=== PATIENT | male | born 1955 | race Caucasian/White ===

== ENCOUNTER 2018-01-31 10:18 | Outpatient (CLI) | payer OTHER, SELFPAY ==
--- NOTE | 2018-01-31 10:03 | DI.RAD_ITS ---
SYMPTOMS/DIAGNOSIS: GROIN PAIN RIGHT HIP: Severe DJD is noted with joint space narrowing, articular sclerosis and subchondral cyst formation and periarticular hypertrophic spurring. SUMMARY: Severe DJD right hip.
== END 2018-01-31 10:38 ==
PROVIDERS: PCP Family Medicine; Visit Provider Physician Assistant Surgical
DX: R10.31 Right lower quadrant pain (principal); M25.551 Pain in right hip; M16.11 Unilateral primary osteoarthritis, right hip
CPT/HCPCS: 73502

== ENCOUNTER 2018-08-27 08:54 | Outpatient (CLI) | payer MEDICARE, BC, SELFPAY ==
[2018-08-27 11:56] LABS: Abs Immature Grans 0.04 k/cumm (0.0-0.09); Absolute Basophil Count 0.04 k/cumm (0.0-0.2); Absolute Eosinophil Count 0.07 k/cumm (0.0-0.7); Absolute Lymphocyte Count 1.61 k/cumm (1.2-3.4); Absolute Monocyte Count 0.62 k/cumm (0.11-0.7); Absolute Neutrophil Count 5.86 k/cumm (1.2-6.7); Basophils % 0.5; Eosinophils % 0.8; HCT 49.9 % (40.0-50.0); HGB 16.3 g/dL (13.5-17.5); Immature Grans % 0.5; Lymphocytes % 19.5; Mean Corp. HGB Concentration 32.7 g/dL (32.0-36.0); Mean Corpuscular Hemoglobin 28.2 pg (27.0-33.0); Mean Corpuscular Volume 86.5 fL (80-95); Mean Platelet Volume 11.9 fL (8.0-11.0); Monocytes % 7.5; Neutrophils % 71.2; Platelet Count 208 x1000/uL (130-400); RBC 5.77 m/cumm (4.50-6.00); RBC Distribution Width 14.7 % (11.8-14.1); White Blood Cell Count 8.24 k/cumm (4.4-10.8)
--- NOTE | 2018-08-27 13:22 | W.PREOPHP ---
Date of service: 08/27/18 Time of Service: 08:23 Assessment and Plan (1) Degenerative joint disease of right hip: Current visit: No Status: Chronic Life disrupting end-stage osteoarthritis of right hip. Surgical procedure is outlined to the patient using a model to help with his understanding of the process. The possible complications and measures use to ameliorate those complications are reviewed with the patient primarily concerned about his vocal cord granulomas and how this may impact intubation. 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 He noted a limp and used a cane for trial. Which did not seem to help his discomfort. He noted the pain laterally as well as in his groin with x-rays show advanced OA with loss of femoral acetabular joint space on frog-lateral with cystic degeneration of his femoral head with sclerotic changes and abundant osteophytes. The pain precluded him walking on a regular basis like he used to do. Total hip arthroplasty was recommended by Dr. Dove as the only way to resolve his advanced OA and the patient is anxious to proceed. Pertinent Surgical Information Healthy 63-year-old male with benign cardiac history with a history of GERD that has caused vocall cord granulomas with excisions x2 at [facility] with history of prior DVT x3 not found to be related to any hematologic disorder following a hematology workup [place] [facility] [place]. off Coumadin since 2010. Review of Systems Constitutional Denies fever(s) and Denies headache(s) ENT Denies headache(s), Denies nasal congestion, Denies nasal discharge and Denies sore throat Cardiovascular Denies chest pain, Denies chest pain with activity, Denies palpitations, Denies dyspnea on exertion and Denies paroxysmal nocturnal dyspnea Respiratory Denies cough, Denies excessive phlegm production, Denies pain on inspiration, Denies dyspnea on exertion and Denies wheezing Gastrointestinal Denies abdominal pain, Denies melena, Denies hematochezia, Denies nausea and Denies vomiting Genitourinary Denies dysuria and Denies urinary frequency Comments: Denies burning sensation with urination Musculoskeletal Reports as per HPI Comments: right hip exam shows flexion to be less than 90 degrees with him going to an immediate external rotation posture. He has no internal rotation. Abduction causes pelvic rocking. He has no pretibial edema and has normal dorsalis pedis and posterior tib pulses. Neurologic Denies headache(s) Psychiatric Denies anxiety and Denies depression Endocrine Denies palpitations Comments: Denies any unplanned weight changes Allergic/Immunologic Denies wheezing PFSH Medical History DVT (deep venous thrombosis) (Chronic ~1996) Esophageal reflux (Acute 11/06/13) Contact granuloma of larynx (Acute) Surgical History History of hernia repair (Chronic ~02/2018) History of tonsillectomy (Chronic) Family History Mother Alzheimer disease Father Heart attack Heart disease Pulmonary fibrosis Maternal Grandfather Stroke Maternal Grandmother CHF (congestive heart failure) Other DVT (deep venous thrombosis) Social History Smoking/Tobacco Use Status: Never Alcohol Intake: current Alcohol Intake frequency: a few times a month Alcohol type: wine Drug use: Never Adopted: No Foster care: No Household members: none Housing: house Number of Children: 0 Communication Needs: Corrective Lenses Education Level: college Do you need help understanding health information?: Never current occupation: Retired Banker What type of physical activity do you participate in: none Sylvia/Buddhist: Sikhism Seatbelt use: always Drive intox or ride w/intox line driver: No Working smoke detector in home: Yes Fire extinguisher in home: Yes Carbon monox detector in home: Yes Victim of physical abuse: No Victim of emotional abuse: No Victim of sexual abuse: No Meds Home Medications Medication Instructions Recorded Confirmed Type ibuprofen [Motrin IB] 200 mg PO TID 08/27/18 08/27/18 History omeprazole magnesium [Prilosec OTC] 20 mg PO BID 08/27/18 08/27/18 History Allergies Allergy/AdvReac Type Severity Reaction Status Date / Time amoxicillin Allergy rash, h/a, Verified 08/27/18 09:47 vomitting doxycycline Allergy rash, h/a, Verified 08/27/18 09:47 vomitting Exam Const General: cooperative HENMT Throat: posterior oropharynx normal Eyes General: appearance normal, both eyes and all related structures Conjunctivae: conjunctivae normal Sclera: sclerae normal Neck Neck: no JVD Carotids: normal carotid upstroke and no bruits Resp Effort & Inspection: normal respiratory effort and able to speak in complete sentences Auscultation: clear to auscultation bilaterally, no rales, no rhonchi and no wheezes Cardio Rate: regular rate Heart Sounds: S1 normal, S2 normal and no murmurs Pulses: normal peripheral pulses Other: No pulsatile mass noted with palpation over the abdominal aorta GI Palpation: soft and no hepatosplenomegaly Auscultation: normal bowel sounds General: No CVA tenderness Extrem General: no pedal edema Other: Normal sensation to light touch No web space cracks or splits noted normal distal pulses. hip flexion limited with patient going into external rotation. no internal rotatio.abduction causes pelvis rocking Results Labs : 08/27/18 11:45 Laboratory Results - last 24 hr 08/27/18 11:45 WBC 8.24 RBC 5.77 Hgb 16.3 Hct 49.9 MCV 86.5 MCH 28.2 MCHC 32.7 RDW 14.7 H Plt Count 208 MPV 11.9 H Immature Gran % 0.5 Neutrophils % 71.2 Lymphocytes % 19.5 Monocytes % 7.5 Eosinophils % 0.8 Basophils % 0.5 Absolute Neutrophils 5.86 Absolute Lymphocytes 1.61 Absolute Monocytes 0.62 Absolute Eosinophils 0.07 Absolute Basophils 0.04
--- NOTE | 2018-08-27 13:29 | HPE_ITS ---
Date of service: 08/27/18 Time of Service: 08:23 Assessment and Plan (1) Degenerative joint disease of right hip: Current visit: No Status: Chronic Life disrupting end-stage osteoarthritis of right hip. Surgical procedure is outlined to the patient using a model to help with his understanding of the process. The possible complications and measures use to ameliorate those complications are reviewed with the patient primarily concerned about his vocal cord granulomas and how this may impact intubation. 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 He noted a limp and used a cane for trial. Which did not seem to help his discomfort. He noted the pain laterally as well as in his groin with x-rays show advanced OA with loss of femoral acetabular joint space on frog-lateral with cystic degeneration of his femoral head with sclerotic changes and abundant osteophytes. The pain precluded him walking on a regular basis like he used to do. Total hip arthroplasty was recommended by Dr. Dove as the only way to resolve his advanced OA and the patient is anxious to proceed. Pertinent Surgical Information Healthy 63-year-old male with benign cardiac history with a history of GERD that has caused vocall cord granulomas with excisions x2 at [facility] with history of prior DVT x3 not found to be related to any hematologic disorder following a hematology workup at [facility] [place]. off Coumadin since 2010. Review of Systems Constitutional Denies fever(s) and Denies headache(s) ENT Denies headache(s), Denies nasal congestion, Denies nasal discharge and Denies sore throat Cardiovascular Denies chest pain, Denies chest pain with activity, Denies palpitations, Denies dyspnea on exertion and Denies paroxysmal nocturnal dyspnea Respiratory Denies cough, Denies excessive phlegm production, Denies pain on inspiration, Denies dyspnea on exertion and Denies wheezing Gastrointestinal Denies abdominal pain, Denies melena, Denies hematochezia, Denies nausea and Denies vomiting Genitourinary Denies dysuria and Denies urinary frequency Comments: Denies burning sensation with urination Musculoskeletal Reports as per HPI Comments: right hip exam shows flexion to be less than 90 degrees with him going to an immediate external rotation posture. He has no internal rotation. Abduction causes pelvic rocking. He has no pretibial edema and has normal dors otoniel pedis and posterior tib pulses. Neurologic Denies headache(s) Psychiatric Denies anxiety and Denies depression Endocrine Denies palpitations Comments: Denies any unplanned weight changes Allergic/Immunologic Denies wheezing PFSH Medical History DVT (deep venous thrombosis) (Chronic ~1996) Esophageal reflux (Acute 11/06/13) Contact granuloma of larynx (Acute) Surgical History History of hernia repair (Chronic ~02/2018) History of tonsillectomy (Chronic) Family History Mother Alzheimer disease Father Heart attack Heart disease Pulmonary fibrosis Maternal Grandfather Stroke Maternal Grandmother CHF (congestive heart failure) Other DVT (deep venous thrombosis) Social History Smoking/Tobacco Use Status: Never Alcohol Intake: current Alcohol Intake frequency: a few times a month Alcohol type: wine Drug use: Never Adopted: No Foster care: No Household members: none Housing: house Number of Children: 0 Communication Needs: Corrective Lenses Education Level: college Do you need help understanding health information?: Never current occupation: Retired Banker What type of physical activity do you participate in: none Sylvia/Scientologist: Protestant Seatbelt use: always Drive intox or ride w/intox cdl b driver: No Working smoke detector in home: Yes Fire extinguisher in home: Yes Carbon monox detector in home: Yes Victim of physical abuse: No Victim of emotional abuse: No Victim of sexual abuse: No Meds Home Medications Medication Instructions Recorded Confirmed Type ibuprofen [Motrin IB] 200 mg PO TID 08/27/18 08/27/18 History omeprazole magnesium [Prilosec OTC] 20 mg PO BID 08/27/18 08/27/18 History Allergies Allergy/AdvReac Type Severity Reaction Status Date / Time amoxicillin Allergy rash, h/a, Verified 08/27/18 09:47 vomitting doxycycline Allergy rash, h/a, Verified 08/27/18 09:47 vomitting Exam Const General: cooperative HENMT Throat: posterior oropharynx normal Eyes General: appearance normal, both eyes and all related structures Conjunctivae: conjunctivae normal Sclera: sclerae normal Neck Neck: no JVD Carotids: normal carotid upstroke and no bruits Resp Effort & Inspection: normal respiratory effort and able to speak in complete sentences Auscultation: clear to auscultation bilaterally, no rales, no rhonchi and no wheezes Cardio Rate: regular rate Heart Sounds: S1 normal, S2 normal and no murmurs Pulses: normal peripheral pulses Other: No pulsatile mass noted with palpation over the abdominal aorta GI Palpation: soft and no hepatosplenomegaly Auscultation: normal bowel sounds General: No CVA tenderness Extrem General: no pedal edema Other: Normal sensation to light touch No web space cracks or splits noted normal distal pulses. hip flexion limited with patient going into external rotation. no internal rotatio.abduction causes pelvis rocking Results Labs : 08/27/18 11:45 Laboratory Results - last 24 hr 08/27/18 11:45 WBC 8.24 RBC 5.77 Hgb 16.3 Hct 49.9 MCV 86.5 MCH 28.2 MCHC 32.7 RDW 14.7 H Plt Count 208 MPV 11.9 H Immature Gran % 0.5 Neutrophils % 71.2 Lymphocytes % 19.5 Monocytes % 7.5 Eosinophils % 0.8 Basophils % 0.5 Absolute Neutrophils 5.86 Absolute Lymphocytes 1.61 Absolute Monocytes 0.62 Absolute Eosinophils 0.07 Absolute Basophils 0.04
== END 2018-08-27 09:14 ==
PROVIDERS: PCP Student in an Organized Health Care Education/Training Program; Visit Provider Orthopaedic Surgery
DX: M25.551 Pain in right hip (principal); M16.11 Unilateral primary osteoarthritis, right hip; Z01.812 Encounter for preprocedural laboratory examination; Z01.818 Encounter for other preprocedural examination
CPT/HCPCS: 36415; 86850; 86900; 86901; 85025

== ENCOUNTER 2018-09-02 05:56 | Inpatient (IN) | payer MEDICARE, BC, SELFPAY ==
[2018-09-02] VITALS (15 sets, daily range): BP systolic 114–143; BP diastolic 66–92; PULSE 61–86; RESP 12–20; TEMP 35.9–37.6; O2SAT 92–99
[2018-09-02] MEDS: Lactated Ringers 1,000 ML 80 ML IV ×2 (06:43→09:30)
--- NOTE | 2018-09-02 06:48 | DI.RAD_ITS ---
SYMPTOM/DIAGNOSIS: DJD RIGHT HIP RIGHT HIP IN O.R.: Single portable view of the pelvis was obtained in the operating room, during the placement of a right total hip replacement. The orthopedic hardware appears in good position. Please refer to the procedure report for complete details.
[2018-09-02] MEDS: ceFAZolin 2 GM/50 ML BAG IVPB (08:00)
--- NOTE | 2018-09-02 10:37 | DI.RAD_ITS ---
SYMPTOM/DIAGNOSIS: CHECK TOTAL HIP COMPONENTS IN rr PELVIS: The patient is status post right total hip replacement. The orthopaedic hardware appears in good position. The bones are intact. Skin derrek are present. Post surgical changes are seen in the hip soft tissues. IMPRESSION: Right THR
[2018-09-02] MEDS: FAMOTIDINE 20 MG/50 ML BAG 200 MG IVPB (10:50)
[2018-09-02] MEDS: POTASSIUM CHLORIDE/0.9% NACL 1,000 ML 150 MEQ IV ×2 (11:40→18:17)
[2018-09-02] MEDS: Ketorolac 30 MG/ML VIAL IVP ×3 (12:13→23:58)
[2018-09-02] MEDS: Normal Saline Flush 10 ML SYR IV ×2 (12:14→18:06)
--- NOTE | 2018-09-02 13:17 | NUR.NOTE ---
Nursing Note: Pt to MS floor at 1130 from PACU following hip surgery. A&Ox3, VSS. Family at bedside. Abductor pillow in place. Pacheco catheter; clear, yellow urine. Pt oriented to MS floor, call malik, etc. Call malik within reach. RN will continue to monitor.
[2018-09-02] MEDS: Docusate Sodium 100 MG CAP PO ×2 (14:40→19:48)
[2018-09-02] MEDS: HYDROcodone 5/Acetaminophen 325 TAB PO ×2 (14:46→15:22)
[2018-09-02] MEDS: ceFAZolin 2,000 MG in Normal Saline 100 ML 200 MG IVPB ×2 (15:33→20:52)
--- NOTE | 2018-09-02 17:19 | PT.INIE ---
Date of service: 09/02/18 Time of Service: 15:13 PT Notes Inpatient Physical Therapy Evaluation Date: 09/02/2018 Referring Doctor: Frank Dove MD PT Orders: PT CONSULT: Mobilize postop right total hip. Total hip precautions right. WBAT to right leg. Get OOB ambulating in room this afternoon. Precautions: Fall. Standard. WBAT on right LE. Total hip precautions on the R hip. Patient Profile/Admitting Diagnosis: Patient is a 63-year-old male with unilateral primary osteoarthritis of right hip status post total hip arthroplasty on postoperative day 0. PMHX: Medical History DVT (deep venous thrombosis) (Chronic ~1996) Esophageal reflux (Acute 11/06/13) Contact granuloma of larynx (Acute) Surgical History History of hernia repair (Chronic ~02/2018) History of tonsillectomy (Chronic) Social History/Home Situation: Patient lives alone in a one-story house with 3 steps to enter, rails on the left going up. Patient took care of ailing parents for over 10 years and signed house to be handicap accessible. House has a low threshold and shower with grab bars. There is a raised toilet seat with grab bars on adjacent bustos. Patient has been independent with all aspects of ADLs with use of a straight cane for MRADLs. He still drives. 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 Current Functional Limitations: Need for assistance with all transfer and ambulation task performance using F WW Equipment Owned/DME: FWW, SBQC, SPC, raised toilet seat Subjective: Patient is agreeable to a PT consult and treatment today. He reports slight lightheadedness upon sitting up in supine which subsided with rest. He reports discomfort at rest on the right hip and and with movement. He looks forward to going home soon as it is safe to do so and may consider home health PT services for a short time to maximize safety at home. H okay to be e also agreed to progressing to outpatient physical therapy services in order to facilitate return to prior level of function. Objective: General Observation: Patient seen resting in bed head of bed elevated 30 degrees. Wound dressing covering GUSTAVO surgical site. TEDS to bilateral legs. PT pumps to bilateral legs. IV right UE. Abduction pillow in place. Pacheco catheter in place. Mental Status: Alert and oriented x4 Pain: 4/10 on right hip and knee with rest and with movement ROM: Right Upper Extremity: Shoulder Flexion WFL. Shoulder abduction WFL. Elbow flexion WFL. Wrist flexion WFL. Functional opening and closing of hand WFL. Left Upper Extremity: Shoulder Flexion WFL. Shoulder abduction WFL. Elbow flexion WFL. Wrist flexion WFL. Functional opening and closing of hand WFL. Right Lower Extremity: Hip flexion to within movement precautions WFL. Hip abduction to within movement precautions WFL. Knee flexion WFL. Ankle dorsiflexion WFL. Ankle plantarflexion WFL. Left Lower Extremity: Hip flexion WFL. Hip abduction WFL. Knee flexion WFL. Ankle dorsiflexion WFL. Ankle plantarflexion WFL. Strength: Right Upper Extremity: Shoulder flexors 5/5. Shoulder abductors 5/5. Elbow flexors 5/5. Elbow extensors 5/5. Adult Education Professional strong. Left Upper Extremity: Shoulder flexors 5/5. Shoulder abductors 5/5. Elbow flexors 5/5. Elbow extensors 5/5. Adult Education Professional strong. Right Lower Extremity: Hip flexors 3- /5. Hip abductors 3- /5. Knee flexors 4- /5. Knee extensors 3+ /5. Ankle dorsiflexors 5/5. Ankle plantarflexors 5/5. Left Lower Extremity:Hip flexors 5/5. Hip abductors 5/5. Knee flexors 5/5. Knee extensors 5/5. Ankle dorsiflexors 5/5. Ankle plantarflexors 5/5. Sensation: Patient reports ability to feel bilateral lower extremities at time of evaluation, intact as to pain and pressure. Bed Mobility/Transfers: Supine to sit HOB elevated to 30 degrees requiring minimal assist to to right LE Sit to supine HOB elevated to 30 degrees requiring minimal assist to to right LE Sit to stand bed elevated to above 20 degrees from floor requiring CGA using both hands for support Stand to sit bed elevated to above 20 degrees from floor requiring CGA using both hands for support Bed to chair CGA using FWW Chair to bed CGA using FWW Gait: Patient was able to tolerate in-room ambulation of 10 steps forward and then 10 steps back using step-to gait pattern with CGA of this PT requiring minimal to moderate verbal cueing for correct sequence, gait pattern, walker management and overall safety. Decreased step height and length on the right side noted with decreased gait velocity due to post reparative status and pain complaint. Balance: Static Sitting: Good Dynamic Sitting: Good Static Standing: Fair Dynamic Standing: Fair Special Tests: Mobility Limitations Standardized Measure [facility] AM-PAC 6 clicks Basic Mobility Inpatient Short Form: Raw Score: 17 CMS Score: 51% deficit Informed Consent/Education: Patient instructed in purpose of PT consult and plan of care. Patient was advised about potential need for home health PT in order to facilitate education and training with safe techniques to reduce fall risk at home and to bridge the gap between home and outpatient PT services with goal of returning to PLOF with least restrictive assistive ambulatory device. Patient was instructed with hourly ankle pumping in order to augment anti-DVT pump function to minimize DVT ocurrence as patient has been known to have DVT x3 in the past. Assessment: Patient is a 63-year-old male with primary unilateral osteoarthritis of right hip status post right total hip arthroplasty on postoperative day 0. Patient presents with clinical signs and symptoms consistent with current/admitting diagnoses and post reparative status that have resulted to mobility limitations, gait instability, generalized weakness, and impairment of motor control as demonstrated by the following impairment level findings: 1. Decreased strength to R LE major muscle groups 2. Impaired sitting/standing balance 3. Impaired activity tolerance 4. Limitation of joint range of motion in right hip and knee joint due to movement precautions Impairments are contributing to the following functional limitations: 1. Dependent bed mobility skills 2. Increased dependence with transfers 3. Inability to safely ambulate without assistive device and physical assistance 4. Increase completion time for mobility ADL performance 5. Increased fall risk 6. Inability to negotiate steps alone safely Patient is assessed as a [id number] moderate complexity based on the following: History: Cognitively intact male who is independent with all aspects of ADLs prior to surgery but with increased risk for DVT and with current mobility limitations as indicated above Examination: Underlying impairments and functional limitations as noted above Presentation:Evolving Decision Makin moderate complexity Goals: Goals X1 week 1. Supine-Sit independent 2. Sit-Supine independent 3. Sit-Stand independent 4. Stand-Sit independent 5. Bed-Chair independent 6. Chair-Bed independent 7. Independent gait on level surface with use of least restrictive device for at least 200 feet without report of pain nor dyspnea 8. Independent stair negotiation while holding onto bilateral rails for at least 5 steps without report of pain nor dyspnea 9. Independent with home exercise program 10. Good static and dynamic standing balance/tolerance Plan of Care/Treatment Plan 1-2x/day, 7 days/week x 1 week. Plan of care has been reviewed with the SPRAY PAINTING MACHINE OPERATOR providing the service under Physical Therapy direction. Initiate Physical Therapy intervention for strengthening, bed mobility, transfers, gait, stairs, balance training, use of assistive device. DISCHARGE RECOMMENDATIONS: Patient will benefit from home health PT services in order to progress mobility level using least restrictive assistive ambulatory device/using no device, assess home safety, identify additional equipment needs, and establish a functional maintenance program that will increase ability of patient to remain at home. TREATMENT CODE/TIME: 17503 x30 minutes, 9753 0 x 25 minutes beginning at 15:13 p.m. Thank you very much for this referral. Christa Figueroa PT, DPT, CLT [facility]
[2018-09-02] MEDS: oxyCODONE-CR 10 MG TABCR PO (18:05)
[2018-09-03] VITALS (8 sets, daily range): BP systolic 109–145; BP diastolic 67–87; PULSE 69–84; RESP 16–18; TEMP 36.7–38; O2SAT 93–97
[2018-09-03] MEDS: POTASSIUM CHLORIDE/0.9% NACL 1,000 ML 150 MEQ IV ×2 (00:25→06:33)
[2018-09-03] MEDS: ceFAZolin 2,000 MG in Normal Saline 100 ML 200 MG IVPB ×2 (02:00→09:10)
[2018-09-03] MEDS: Ketorolac 30 MG/ML VIAL IVP ×4 (06:02→23:57)
[2018-09-03] MEDS: oxyCODONE-CR 10 MG TABCR PO ×2 (06:02→17:59)
[2018-09-03 07:06] LABS: HCT 39.4 % (40.0-50.0); HGB 12.7 g/dL (13.5-17.5); Mean Corp. HGB Concentration 32.2 g/dL (32.0-36.0); Mean Corpuscular Hemoglobin 28.5 pg (27.0-33.0); Mean Corpuscular Volume 88.3 fL (80-95); Platelet Count 150 x1000/uL (130-400); RBC 4.46 m/cumm (4.50-6.00); RBC Distribution Width 14.7 % (11.8-14.1); White Blood Cell Count 7.28 k/cumm (4.4-10.8)
[2018-09-03] MEDS: Pantoprazole 40 MG TABCR PO (08:43)
[2018-09-03] MEDS: Docusate Sodium 100 MG CAP PO ×3 (08:43→20:29)
[2018-09-03] MEDS: Multivitamin w/Minerals TAB 1 TAB PO (08:43)
--- NOTE | 2018-09-03 08:48 | PDOC.CMIN ---
- If Service Date Differs Date of service: 09/03/18 Time of Service: 08:48 Care Management Initial Assess REASON FOR HOSPITALIZATION:: degenerative joint disease of right hip PAST MEDICAL HISTORY/PAST SURGICAL HISTORY:: Medical History. DVT (deep venous thrombosis) (Chronic ~1996). Esophageal reflux (Acute 11/06/13). Contact granuloma of larynx (Acute). Surgical History. History of hernia repair (Chronic ~02/2018). History of tonsillectomy (Chronic) PREVIOUS FUNCTIONAL STATUS/SOCIAL/FAMILY SUPPORTS:: Ron lives alone in a single family home in [facility]. He is a retired banker. Ron cared for his Dad in his home until he in February. He had his home renovated to be ADA compliant and handicapped accessible for his Dad. He is independent with ADLs , driving etc. He has good neighbors and a brother and kybxis-[id number]-mwa who are very supportive. CURRENT FUNCTIONAL STATUS:: Ron was sitting up in the chair when CM came to visit. He was smiling broadly and readily engaged in conversation. He stated that he is feeling well and that his pain is only a 1 on a scale of 1-10. He said he is pleasantly surprised at how well he is doing. Before coming to the hospital he purchased a large supply of frozen meals and set things up so that he could reach what he needed easily. He also has a wheelchair ramp from when his Mom was ill, if needed. He anticipates being in the hospital at least until tomorrow. ADVANCE DIRECTIVES:: None on file at [facility] CODE STATUS:: Full Code INSURANCE COVERAGE / FINANCIAL ISSUES:: Medicare. BS CURRENT HOME/COMMUNITY SERVICES/EQUIPMENT:: Currently no home services. Uses a cane. PRIMARY CARE PHYSICIAN:: Shwetha Jarrell POTENTIAL DISCHARGE NEEDS:: He may need home health services of SN and/or PT. He will need to follow up with his surgeon and discharge plan of care. PATIENT/FAMILY EDUCATION NEEDS:: Discharge plan, limitations, follow up plan of care, Ask Me Three. ANTICIPATED BARRIERS TO DISCHARGE:: None identified TRANSPORTATION:: Via private automobile with family when ready. PLAN:: Ron is recovering from total hip arthroplasty surgery performed yesterday. His pain is well controlled and he is working with PT. Anticipate he will go home with no services. CM will continue to provide support to patient and discharge planning considerations.
--- NOTE | 2018-09-03 09:02 | INITIAL_ITS ---
- If Service Date Differs Date of service: 09/03/18 Time of Service: 08:48 Care Management Initial Assess REASON FOR HOSPITALIZATION:: degenerative joint disease of right hip PAST MEDICAL HISTORY/PAST SURGICAL HISTORY:: Medical History. DVT (deep venous thrombosis) (Chronic ~1996). Esophageal reflux (Acute 11/06/13). Contact granuloma of larynx (Acute). Surgical History. History of hernia repair (Chronic ~02/2018). History of tonsillectomy (Chronic) PREVIOUS FUNCTIONAL STATUS/SOCIAL/FAMILY SUPPORTS:: Ron lives alone in a single family home in [facility]. He is a retired banker. Ron cared for his Dad in his home until he in February. He had his home renovated to be ADA compliant and handicapped accessible for his Dad. He is independent with ADLs , driving etc. He has good neighbors and a brother and [id number]-vq-ajs who are very supportive. CURRENT FUNCTIONAL STATUS:: Ron was sitting up in the chair when CM came to visit. He was smiling broadly and readily engaged in conversation. He stated that he is feeling well and that his pain is only a 1 on a scale of 1-10. He said he is pleasantly surprised at how well he is doing. Before coming to the hospital he purchased a large supply of frozen meals and set things up so that he could reach what he needed easily. He also has a wheelchair ramp from when his Mom was ill, if needed. He anticipates being in the hospital at least until tomorrow. ADVANCE DIRECTIVES:: None on file at [facility] CODE STATUS:: Full Code INSURANCE COVERAGE / FINANCIAL ISSUES:: Medicare. BS CURRENT HOME/COMMUNITY SERVICES/EQUIPMENT:: Currently no home services. Uses a cane. PRIMARY CARE PHYSICIAN:: Shwetha Jarrell POTENTIAL DISCHARGE NEEDS:: He may need home health services of SN and/or PT. He will need to follow up with his surgeon and discharge plan of care. PATIENT/FAMILY EDUCATION NEEDS:: Discharge plan, limitations, follow up plan of care, Ask Me Three. ANTICIPATED BARRIERS TO DISCHARGE:: None identified TRANSPORTATION:: Via private automobile with family when ready. PLAN:: Ron is recovering from total hip arthroplasty surgery performed yesterday. His pain is well controlled and he is working with PT. Anticipate he will go home with no services. CM will continue to provide support to patient and discharge planning considerations.
[2018-09-03] MEDS: Enoxaparin 40 MG/0.4 ML SYR SC (10:03)
--- NOTE | 2018-09-03 10:04 | ROE_ITS ---
DATE OF PROCEDURE: September 02, 2018 PREOPERATIVE DIAGNOSIS: Osteoarthritis right hip. POSTOPERATIVE DIAGNOSIS: Same. PROCEDURE: Right total hip arthroplasty. COMPONENTS USED: 1. DePuy Storey stem, press-fit, high-offset, size 4. 2. Press-fit acetabular shelf, 52 x 36 mm. 3. Acetabular liner, 52 x 36 mm. 4. 36 mm, +5 ceramic femoral head. ANESTHESIA: Spinal, Herbie Funes CRNA SURGEON: Frank Dove M.D. 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 He had episodes of severe pain along with this. He had difficulty putting on his shoes and socks. He has used a cane for a trial because of increasing discomfort. The cane didn't seem to hel p with his pain. He has had to cut back on his walking because of the pain, to the point where he is not walking at all. He was seen and evaluated. He has marked restriction of motion of his right hi p. His hip range of motion is painful. X-rays show advanced osteoarthritis of the right hip with carter bchondral cysts in the femoral head, complete loss of joint space and large osteophytes at the femora l head and neck junction. There appeared to be possible loose bodies as well. Total hip arthroplast y was recommended to alleviate his pain and hopefully restore some of his previous ambulatory abiliti es. The risks and complications of the procedure were explained to the patient in detail preoperativ erin. PROCEDURE: The patient was taken to the Operating Room on 09/02/18. His spinal anesthetic was admini stered. He was then turned to the right lateral position on the operating table. The position on th e table was secured by a pneumatic beanbag. The right hip was then prepped and draped free in the [facility] sterile fashion. A standard posterolateral incision was made, centered over the greater trochanter. The incision was carried down through the skin and subcu to the iliotibial band and gluteus fascia. The subcutaneous veins were cauterized. The iliotibial band and gluteus fascia were longitudinally incised in line wi th the skin incision. Charnley self-retraining retractor was then inserted. The piriformis tendon was identified and a tack suture was placed on the tendon before it was released from its insertion o n the femoral neck. A posterior capsular incision was then made. The incision was positioned as far anterior as possible so that a posterior capsular flap could be developed for closure. The capsule was released from the femoral neck. A bone hook was placed onto the neck of the femur and the femora l head was dislocated. The femoral neck was then resected at appropriate angle and level, determined using the femoral neck resection guide and using an oscillating saw. Traction was placed on the fem ur medially and an anterior capsulectomy was performed. The posterior capsular flap was then further developed. Acetabular retractors were inserted and an excellent view of the acetabulum was obtained . There were multiple bony loose bodies in the joint that were retrieved with a pituitary rongeur. The acetabulum was then serially reamed using hemispheric reamers up to a size 52. At that point it was felt that there was a good fit with the cup. The actual liner, 52 x 36, was then impacted into p lace using the impactor and mallet. The liner was further stabilized using a single screw through th e acetabular shell into the pelvis. The final liner was inserted and then attention was turned to th e femoral side. The femoral canal was serially reamed with straight reamers up to a size 5. However when broaching, it was felt that a size 4 provided good fit and fill and that a size 5 might be too tight. Leaving t he size [address] and using a trial femoral neck and head, the trial components were reduced in the acetabulum and intraoperative AP x-ray was obtained. The AP x-ray showed that the size 4 stem provided good fit and fill. It determined the acetabular component was in excellent position and li mb lengths were equalized using a +5 head. The trial components were then dislocated from the acetab ulum and the trial femoral stem was removed. The trial liner to the acetabular component was removed . The manhole cover in the center of the liner was then inserted and tightened. The actual liner, p olyethylene 52 x 36 was then placed into the shell and locked into place with the impactor and mallet . A size 4, LUZ porous-coated, press-fit stem was then inserted in proper position alignment and was inserted with the impactor and mallet until fully seated in the femur. The wound was irrigated with Betadine and saline solution and this was allowed to stay in the wound for a minute before suctioning . A +5, 36 ceramic femoral head was placed on the neck of the stem and impacted into place with the impactor and mallet. The femoral component was reduced into the acetabulum. Stability was checked at this time. There was minimal shuck with longitudinal traction. The hip was stable with no dislocation with flexion to 90 degrees and internal rotation to 85 to 90 degrees. Th ere was no subluxation nor dislocation with external rotation of the right lower extremity in extensi on. The right thigh was then abducted in a Meneses stand and closure was begun. The posterior capsular flap that had been developed, along with the piriformis tendon, was secured to the posterior edge of the greater trochanter using interrupted [id number] sutures of #2 FiberWire placed through drill hol es in the posterior greater trochanter. Two grams of tranexamic acid in 150 cc's of saline solution were then instilled into the wound and allowed to sit for a minute before suctioning. The wound chris ins were infiltrated with 0.5% Marcaine with an epinephrine solution. Any obvious bleeders were caut erized and a dry wound was obtained at the conclusion of the procedure. The iliotibial band and glut eus fascia were approximated with interrupted [id number] sutures of #1 Vicryl suture material. The subcu was approximated with interrupted #2-0 Vicryl sutures. The skin edges were approximated wi skin derrek. Sterile dressings were applied followed by a light compressive dressing to the righ t hip. The patient was turned supine and an abduction pillow was placed between his legs. Estimated blood loss 300 to 400 cc's. The patient tolerated the procedure well and was discharged to recovery in good condition.
--- NOTE | 2018-09-03 10:41 | PT.INTREAT ---
Date of service: 09/03/18 Time of Service: 10:41 PT Notes 09/03/18 SUBJECTIVE: Ron stating he feels stiff today compared to yesterday. No significant pain. He wonders if he can weight bear through the right leg. OBJECTIVE: Seated in recliner, agreeable to PT. Pt education: Review 3/3 hip precautions and weight bearing status. Pt understands. TRANSFERS Sit to stand: CGA Stand to sit: CGA GAIT Device: FWW Weight bearing: WBAT R Assist: CGA Distance: 75' Deviation: Step to initially progressing to step through THEREX: Seated LE strengthening with post op precautions. See flow sheet. ASSESSMENT: Pt progressing with gait distance. He is now placing weight through the R LE without discomfort with step through gait pattern. We will progress with bed mobility and transfers this afternoon as well as stair assessment. PLAN: As above. Continue to progress toward's established goals. Treatment time: 25' [id number], [id number] Sandy Bucio, PACKER INSPECTOR
--- NOTE | 2018-09-03 13:19 | PT.INTREAT ---
Date of service: 09/03/18 Time of Service: 13:20 PT Notes 09/03/18 SUBJECTIVE: Pt stating he feels stiff again after sitting up for most of the day. No significant pain. He notes that he may want an OT consult to work on getting dressed. He has brought in his own sock jeff and grabber that he had a home. OBJECTIVE: Agreeable to PT treatment this afternoon. TRANSFERS Sit to stand: SBA Stand to sit: SBA Sit to supine: Min A for R LE GAIT Device: FWW Weight bearing: AT R Assist: SBA Distance: 100'x2 Deviation: Step to pattern STAIRS: 6-4 steps, 4-6 steps, 1 rail, 1 SPC, step to pattern, SBA. THEREX: Light muscle setting and hip ROM as noted on flow sheet. See flow sheet for specifics. ASSESSMENT: Pt negotiated stairs well with one rail and one SPC. He continues to require assist to get into bed and we willl continue to work on this tomorrow. Progressing well with gait and his pain seems to be well controlled. PLAN: Continue with bed mobility and transfer training tomorrow as per POC. Treatment time: 30 minutes [id number], [id number] Sandy Bucio PTA
--- NOTE | 2018-09-03 14:03 | CHAPLAIN ---
Ron was sitting up in a chair when I visited. He was very pleasant and easily engaged in a conversation. He told me about caregiving for his dad, who in February. Prior to that he took care of his mom for several years after she was diagnosed with dementia. His parents lived with him for 10 years. We talked about the stress of caregiving and how caregivers often neglect their own health issues. Ron said he has some outside help in caring for his mom as he was still working at the time. 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 Ron is thinking of doing some traveling once he recovers, and continuing to investigate family genealogy in [place]. Ron has an older brother and sister in law who will likely visit later today.
--- NOTE | 2018-09-03 15:36 | W.PM.PROGNOT ---
Date of Service Date of service: 09/03/18 Time of Service: 15:36 Assessment and Plan (1) Status post total hip replacement, right: Current visit: Yes Status: Acute Assessment: Stable postop day #1 right total hip replacement. Plan: Continue to mobilize per protocol for total hip replacement. Watch him to make sure he voids now that his Pacheco is out. DC IV fluids. Check hemoglobin tomorrow. Will DC home when he is independent with transfers and ambulation and taking only p.o. pain meds. Subjective Interval history since last seen: Ron is feeling quite well today. His pain is well controlled. The numbness in his right leg from the spinal has worn off. He is very happy to have the catheter out. Exam Narrative Exam Narrative: Motor and sensory examination of the right foot is completely normal today. He has not voided yet since his Pacheco has been DC'd, but he feels no urgency at this time. Hemoglobin this morning is 12.7 g. He is afebrile and his vital signs are stable. He has walked around the second floor with PT today. He just needs a little bit of help lifting his right leg to transfer. Objective Objective Clinical Data: Abnormal lab results 09/03/18 Range/Units 06:25 RBC 4.46 L (4.50-6.00) m/cumm Hgb 12.7 L (13.5-17.5) g/dL Hct 39.4 L (40.0-50.0) % RDW 14.7 H (11.8-14.1) % MPV 12.0 H (8.0-11.0) fL Vital Signs Temperature 36.7 C 09/03/18 11:00 Temperature Source Tympanic 09/03/18 11:00 Pulse 84 09/03/18 11:00 Pulse Rhythm Regular 09/03/18 09:00 Respiratory Rate 16 09/03/18 11:00 Respiratory Effort Non-Labored 09/03/18 09:00 Respiratory Depth Normal 09/03/18 09:00 Respiratory Pattern Normal 09/03/18 09:00 Blood Pressure 145/87 H 09/03/18 11:00 Pulse Oximetry 96 09/03/18 11:00 Respiratory End-tidal CO2 31 09/02/18 10:54 Oxygen Delivery Method Room Air 09/03/18 11:00 Oxygen Flow Rate 0 09/03/18 11:00 Pain Level 3 09/03/18 11:46 Intake & Output 09/02/18 09/03/18 09/03/18 23:59 11:59 23:59 Intake Total 3060.5 / 4742.5 2722.5 / 3412.5 690 / 3412.5 Output Total 250 / 1375 600 / 1715 1115 / 1715 Balance 2810.5 / 3367.5 2122.5 / 1697.5 -425 / 1697.5 Intake: IV 1640.5 / 3322.5 2242.5 / 2242.5 Oral 1420 / 1420 480 / 1170 690 / 1170 Output: Urine 250 / 975 600 / 1715 1115 / 1715 Other: Urine Color Light Mira Dark Mira Yellow Urine Appearance Clear Clear Clear Voiding Methods Toilet Laboratory Results WBC 7.28 k/cumm (4.4-10.8) 09/03/18 06:25 RBC 4.46 m/cumm (4.50-6.00) L 09/03/18 06:25 Hgb 12.7 g/dL (13.5-17.5) L 09/03/18 06:25 Hct 39.4 % (40.0-50.0) L 09/03/18 06:25 MCV 88.3 fL (80-95) 09/03/18 06:25 MCH 28.5 pg (27.0-33.0) 09/03/18 06:25 MCHC 32.2 g/dL (32.0-36.0) 09/03/18 06:25 RDW 14.7 % (11.8-14.1) H 09/03/18 06:25 Plt Count 150 x1000/uL (130-400) 09/03/18 06:25 MPV 12.0 fL (8.0-11.0) H 09/03/18 06:25
[2018-09-03] MEDS: Senna TAB 1 TAB PO (17:14)
[2018-09-03] MEDS: Normal Saline Flush 10 ML SYR IVP (23:58)
[2018-09-04 04:03] VITALS: BP 120/74; PULSE 73; RESP 17; TEMP 36.8; O2SAT 97
[2018-09-04] MEDS: Ketorolac 30 MG/ML VIAL IVP (05:35)
[2018-09-04] MEDS: oxyCODONE-CR 10 MG TABCR PO ×2 (05:36→16:12)
[2018-09-04] MEDS: Pantoprazole 40 MG TABCR PO (07:30)
[2018-09-04 07:40] VITALS: BP 119/78; PULSE 75; RESP 18; TEMP 36.8; O2SAT 96; O2SAT 97
[2018-09-04 08:12] LABS: HCT 38.9 % (40.0-50.0); HGB 12.5 g/dL (13.5-17.5); Mean Corp. HGB Concentration 32.1 g/dL (32.0-36.0); Mean Corpuscular Hemoglobin 28.4 pg (27.0-33.0); Mean Corpuscular Volume 88.4 fL (80-95); Mean Platelet Volume 12.4 fL (8.0-11.0); Platelet Count 152 x1000/uL (130-400); RBC Distribution Width 14.7 % (11.8-14.1); White Blood Cell Count 8.08 k/cumm (4.4-10.8)
[2018-09-04] MEDS: Senna TAB 1 TAB PO ×2 (09:09→14:03)
[2018-09-04] MEDS: Multivitamin w/Minerals TAB 1 TAB PO (09:09)
[2018-09-04] MEDS: Normal Saline Flush 10 ML SYR IVP (09:09)
--- NOTE | 2018-09-04 09:09 | PT.INTREAT ---
Date of service: 09/04/18 Time of Service: 09:10 PT Notes 09/04/18 SUBJECTIVE: Pt stating he is doing well. He slept well last night and having minimal discomfort. He notes he was able to get in and out of bed during the night without help. OBJECTIVE: Self care training [id number]: Pt instructed in dressing utilizing grabber and sock jeff. He is able to complete this independently with cues for appropriate completion. All activities performed following post op hip precautions. TRANSFERS Sit to stand: I Stand to sit: I Supine to sit: I Sit to supine: I GAIT Device: FWW Weight bearing: AT R Assist: S Distance: 100'x2 Deviation: Step through pattern, upright posturing. THEREX: Pt performs quad sets, glut sets, hip abduction, ankle pumps x 10 reps each in supine position. See flow sheet. Stairs: 3-4, 2-6, 1 rail, 1 SPC, step to pattern, SBA. ASSESSMENT: Significant gains noted in his functional mobility and transfers. He has a good understanding of his hip precautions and was able to independently don undergarment, pants, socks and shirt today with minor cues and use of equipment. He was given handouts for safe transfers and dressing safety following hip precautions. Pt demonstrates good safety awareness for home. PLAN: Continue current POC as pt is here in the hospital. Treatment time: 30' [id number], [id number] Sandy Bucio PTA
--- NOTE | 2018-09-04 09:13 | PTTR_ITS ---
Date of service: 09/04/18 Time of Service: 09:10 PT Notes 09/04/18 SUBJECTIVE: Pt stating he is doing well. He slept well last night and having minimal discomfort. He notes he was able to get in and out of bed during the night without help. OBJECTIVE: Self care training [id number]: Pt instructed in dressing utilizing grabber and sock jeff. He is able to complete this independently with cues for appropriate completion. All activities performed following post op hip precautions. TRANSFERS Sit to stand: I Stand to sit: I Supine to sit: I Sit to supine: I GAIT Device: FWW Weight bearing: AT R Assist: S Distance: 100'x2 Deviation: Step through pattern, upright posturing. THEREX: Pt performs quad sets, glut sets, hip abduction, ankle pumps x 10 reps each in supine position. See flow sheet. Stairs: 3-4, 2-6, 1 rail, 1 SPC, step to pattern, SBA. ASSESSMENT: Significant gains noted in his functional mobility and transfers. He has a good understanding of his hip precautions and was able to independently don undergarment, pants, socks and shirt today with minor cues and use of equipment. He was given handouts for safe transfers and dressing safety following hip precautions. Pt demonstrates good safety awareness for home. PLAN: Continue current POC as pt is here in the hospital. Treatment time: 30' [id number], [id number] Sandy Bucio PTA
[2018-09-04] MEDS: Enoxaparin 40 MG/0.4 ML SYR SC (10:41)
[2018-09-04 11:18] VITALS: BP 126/82; PULSE 77; RESP 18; TEMP 36.9; O2SAT 96
[2018-09-04] MEDS: Docusate Sodium 100 MG CAP PO (14:03)
--- NOTE | 2018-09-04 14:14 | PTTR_ITS ---
Date of service: 09/04/18 Time of Service: 14:11 PT Notes 09/04/18 SUBJECTIVE: Pt stating he is getting stiff from sitting in the chair. He notes tightness through the lateral hip most likely from swelling. He has not been successful having a bowel movement at this time and he is feeling bloated. OBJECTIVE: Seated in recliner. Agreeable to PT. TRANSFERS Sit to stand: I Stand to sit: I GAIT Device: FWW Weight bearing: AT R Assist: S Distance: 100'x2 ASSESSMENT: Pt tolerates PM PT session well without LOB or significant fatigue noted. He is independent with bed mobility and transfers and therefore not assessed again this PM. He has a good understanding of his precautions and his HEP. PLAN: Continue per POC while pt is here in the hospital. Treatment time: 15 minutes [id number] Sandy Bucio, INSPECTING ENGINEER
--- NOTE | 2018-09-04 15:29 | W.PM.DS.N ---
Date of service: 09/04/18 Time of Service: 15:29 DS: Diagnosis Discharge Diagnosis (1) Status post total hip replacement, right: Status: Acute Discharge Plan Disposition Patient Disposition: HOME Condition: Good Discharge Details Reason For Visit: POST-OP R TOTAL HIP Admit Date/Time: 09/02/18 05:56 Admit Provider: Frank Dove Attending Provider: Frank Dove [facility] Course: Patient was taken to the OR on where he underwent a R total hip without complication. He was mobilized post-op per protocol for THR. He progressed rapidly, achieving full independance by 09/04/18. He remained afebrile throughout his post-operative course. His hemoglobin stabilized at 12.5 g at 48 hours post-op. His dressing was changed on 09/04/18. His incision was clean and dry. I felt he was ready for discharge on the afternoon of . Home Meds and New Rx's Prescriptions: New oxycodone-acetaminophen 5-325 mg tablet 1 tab PO Q6H PRN (Reason: pain) Qty: 20 RF: 0 ibuprofen 800 mg tablet 800 mg PO TID Qty: 60 RF: 0 No Action ibuprofen [Motrin IB] 200 mg Capsule 200 mg PO TID RF: 0 Prilosec OTC 20 mg Tablet,Delayed Release (Dr/Ec) 20 mg PO BID RF: 0 Discharge Instructions Additional Instructions: Elevate R leg when sitting. Walk every day as much as your discomfort allows. Use walker, crutches or cane as long as you limp. Follow total hip precautions on R for 6 weeks post-op. May shower tomorrow. Let the dressing gradually come off over time. Wear elastic stockings during daytime only for next 2 weeks to decrease swelling in legs. Take one baby aspirin (81 mg) twice/day for 30 days to prevent blood clots in legs. Follow up with in 2 weeks. Referrals: Frank Dove MD [ [facility] STAFF PHYSICIAN] - (f/u in 2 weeks.) Activity:: Activity as Tolerated Equipment/Supplies:: Walker Diet:: As Tolerated Discharge Orders Discharge Orders: Discharge Order (Routine); Ordered 09/04/18 Ordered By: Frank Dove DS: Data Vitals/I&O Vitals and I&O: Vital Signs Temperature 36.9 C 09/04/18 11:18 Temperature Source Tympanic 09/04/18 11:18 Pulse 77 09/04/18 11:18 Pulse Rhythm Regular 09/04/18 07:43 Respiratory Rate 18 09/04/18 11:18 Respiratory Effort Non-Labored 09/04/18 07:43 Respiratory Depth Normal 09/04/18 07:43 Respiratory Pattern Normal 09/04/18 07:43 Blood Pressure 126/82 09/04/18 11:18 Pulse Oximetry 96 09/04/18 11:18 Respiratory End-tidal CO2 31 09/02/18 10:54 Oxygen Delivery Method Room Air 09/04/18 11:18 Oxygen Flow Rate 0 09/04/18 11:18 Pain Level 0 09/03/18 17:59 Intake & Output 09/03/18 09/04/18 09/04/18 23:59 11:59 23:59 Intake Total 1150 / 3872.5 870 / 870 Output Total 1515 / 2115 300 / 1000 700 / 1000 Balance -365 / 1757.5 570 / -130 -700 / -130 Intake: IV 20 / 2262.5 20 / 20 Oral 1130 / 1610 850 / 850 Output: Urine 1515 / 2115 300 / 1000 700 / 1000 Other: Urine Color Straw Pale Dark Mira Yellow [place] Urine Appearance Clear Clear Clear Urine Odor Normal None Normal Voiding Methods Toilet Urinal Toilet Labs on day of discharge: Labs from last 24 hours 09/04/18 07:00 WBC 8.08 RBC 4.40 L Hgb 12.5 L Hct 38.9 L MCV 88.4 MCH 28.4 MCHC 32.1 RDW 14.7 H Plt Count 152 MPV 12.4 H PFSH Social History Smoking/Tobacco Use Status: Never Alcohol Intake: current Alcohol Intake frequency: a few times a month Alcohol type: wine Drug use: Never Adopted: No Foster care: No Household members: none Housing: house Number of Children: 0 Communication Needs: Corrective Lenses Education Level: college Do you need help understanding health information?: Never current occupation: Retired Banker What type of physical activity do you participate in: none Sylvia/Congregational: Evangelical Seatbelt use: always Drive intox or ride w/intox funeral driver: No Working smoke detector in home: Yes Fire extinguisher in home: Yes Carbon monox detector in home: Yes Victim of physical abuse: No Victim of emotional abuse: No Victim of sexual abuse: No
[2018-09-04 15:30] VITALS: BP 136/82; PULSE 85; RESP 18; TEMP 37.4; O2SAT 97
--- NOTE | 2018-09-04 15:36 | DSE_ITS ---
Date of service: 09/04/18 Time of Service: 15:29 DS: Diagnosis Discharge Diagnosis (1) Status post total hip replacement, right: Status: Acute Discharge Plan Disposition Patient Disposition: HOME Condition: Good Discharge Details Reason For Visit: POST-OP R TOTAL HIP Admit Date/Time: 09/02/18 05:56 Admit Provider: Frank Dove Attending Provider: Frank Dove [facility] Hospital Course: Patient was taken to the OR on where he underwent a R total hip without complication. He was mobilized post-op per protocol for THR. He progressed rapidly, achieving full independance by 09/04/18. He remained afebrile throughout his post-operative course. His hemoglobin stabilized at 12.5 g at 48 hours post-op. His dressing was changed on 09/04/18. His incision was clean and dry. I felt he was ready for discharge on the afternoon of . Home Meds and New Rx's Prescriptions: New oxycodone-acetaminophen 5-325 mg tablet 1 tab PO Q6H PRN (Reason: pain) Qty: 20 RF: 0 ibuprofen 800 mg tablet 800 mg PO TID Qty: 60 RF: 0 No Action ibuprofen [Motrin IB] 200 mg Capsule 200 mg PO TID RF: 0 Prilosec OTC 20 mg Tablet,Delayed Release (Dr/Ec) 20 mg PO BID RF: 0 Discharge Instructions Additional Instructions: Elevate R leg when sitting. Walk every day as much as your discomfort allows. Use walker, crutches or cane as long as you limp. Follow total hip precautions on R for 6 weeks post-op. May shower tomorrow. Let the dressing gradually come off over time. Wear elastic stockings during daytime only for next 2 weeks to decrease swelling in legs. Take one baby aspirin (81 mg) twice/day for 30 days to prevent blood clots in legs. Follow up with in 2 weeks. Referrals: Frank Dove MD [ [facility] STAFF PHYSICIAN] - (f/u in 2 weeks.) Activity:: Activity as Tolerated Equipment/Supplies:: Walker Diet:: As Tolerated Discharge Orders Discharge Orders: Discharge Order (Routine); Ordered 09/04/18 Ordered By: Frank Dove DS: Data Vitals/I&O Vitals and I&O: Vital Signs Temperature 36.9 C 09/04/18 11:18 Temperature Source Tympanic 09/04/18 11:18 Pulse 77 09/04/18 11:18 Pulse Rhythm Regular 09/04/18 07:43 Respiratory Rate 18 09/04/18 11:18 Respiratory Effort Non-Labored 09/04/18 07:43 Respiratory Depth Normal 09/04/18 07:43 Respiratory Pattern Normal 09/04/18 07:43 Blood Pressure 126/82 09/04/18 11:18 Pulse Oximetry 96 09/04/18 11:18 Respiratory End-tidal CO2 31 09/02/18 10:54 Oxygen Delivery Method Room Air 09/04/18 11:18 Oxygen Flow Rate 0 09/04/18 11:18 Pain Level 0 09/03/18 17:59 Intake & Output 09/03/18 09/04/18 09/04/18 23:59 11:59 23:59 Intake Total 1150 / 3872.5 870 / 870 Output Total 1515 / 2115 300 / 1000 700 / 1000 Balance -365 / 1757.5 570 / -130 -700 / -130 Intake: IV 20 / 2262.5 20 / 20 Oral 1130 / 1610 850 / 850 Output: Urine 1515 / 2115 300 / 1000 700 / 1000 Other: Urine Color Straw Pale Dark Mira Yellow [place] Urine Appearance Clear Clear Clear Urine Odor Normal None Normal Voiding Methods Toilet Urinal Toilet Labs on day of discharge: Labs from last 24 hours 09/04/18 07:00 WBC 8.08 RBC 4.40 L Hgb 12.5 L Hct 38.9 L MCV 88.4 MCH 28.4 MCHC 32.1 RDW 14.7 H Plt Count 152 MPV 12.4 H PFSH Social History Smoking/Tobacco Use Status: Never Alcohol Intake: current Alcohol Intake frequency: a few times a month Alcohol type: wine Drug use: Never Adopted: No Foster care: No Household members: none Housing: house Number of Children: 0 Communication Needs: Corrective Lenses Education Level: college Do you need help understanding health information?: Never current occupation: Retired Banker What type of physical activity do you participate in: none Sylvia/Latter Day: Pentecostal Seatbelt use: always Drive intox or ride w/intox rail car driver: No Working smoke detector in home: Yes Fire extinguisher in home: Yes Carbon monox detector in home: Yes Victim of physical abuse: No Victim of emotional abuse: No Victim of sexual abuse: No
--- NOTE | 2018-09-04 17:20 | PT.INDS ---
Date of service: 09/04/18 Time of Service: 17:20 PT Notes Inpatient Physical Therapy Discharge Summary Dates: 09/04/2018 Dates of Service: 09/02/2018 through 09/04/2018 This is a clinical summary of care provided on the duration of dates listed above. No charge was made in the completion of this documentation. Referring Doctor: Frank Dove MD PT Orders: PT CONSULT: Mobilize postop right total hip. Total hip precautions right. WBAT to right leg. Get OOB ambulating in room this afternoon. Precautions: Fall. Standard. WBAT on right LE. Total hip precautions on the R hip. Patient Profile/Admitting Diagnosis: Patient is a 63-year-old male with unilateral primary osteoarthritis of right hip status post total hip arthroplasty on postoperative day 0. PMHX: Medical History DVT (deep venous thrombosis) (Chronic ~1996) Esophageal reflux (Acute 11/06/13) Contact granuloma of larynx (Acute) Surgical History History of hernia repair (Chronic ~02/2018) History of tonsillectomy (Chronic) Social History/Home Situation: Patient lives alone in a one-story house with 3 steps to enter, rails on the left going up. Patient took care of ailing parents for over 10 years and signed house to be handicap accessible. House has a low threshold and shower with grab bars. There is a raised toilet seat with grab bars on adjacent bustos. Patient has been independent with all aspects of ADLs with use of a straight cane for MRADLs. He still drives. 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 Current Functional Limitations: Need for assistance with all transfer and ambulation task performance using F WW Equipment Owned/DME: FWW, SBQC, SPC, raised toilet seat Subjective: NT. See COOKER SYRUP notes in the morning of 09/04/2018 Objective: General Observation: NT. See COOKER SYRUP notes in the morning of 09/04/2018 Mental Status: NT. See COOKER SYRUP notes in the morning of 09/04/2018 Pain: NT. See COOKER SYRUP notes in the morning of 09/04/2018 ROM: Right Upper Extremity: Shoulder Flexion WFL. Shoulder abduction WFL. Elbow flexion WFL. Wrist flexion WFL. Functional opening and closing of hand WFL. Left Upper Extremity: Shoulder Flexion WFL. Shoulder abduction WFL. Elbow flexion WFL. Wrist flexion WFL. Functional opening and closing of hand WFL. Right Lower Extremity: Hip flexion to within movement precautions WFL. Hip abduction to within movement precautions WFL. Knee flexion WFL. Ankle dorsiflexion WFL. Ankle plantarflexion WFL. Left Lower Extremity: Hip flexion WFL. Hip abduction WFL. Knee flexion WFL. Ankle dorsiflexion WFL. Ankle plantarflexion WFL. Strength: Right Upper Extremity: Shoulder flexors 5/5. Shoulder abductors 5/5. Elbow flexors 5/5. Elbow extensors 5/5. Sash Installer strong. Left Upper Extremity: Shoulder flexors 5/5. Shoulder abductors 5/5. Elbow flexors 5/5. Elbow extensors 5/5. Sash Installer strong. Right Lower Extremity: Hip flexors 3- /5. Hip abductors 3- /5. Knee flexors 4- /5. Knee extensors 3+ /5. Ankle dorsiflexors 5/5. Ankle plantarflexors 5/5. Left Lower Extremity:Hip flexors 5/5. Hip abductors 5/5. Knee flexors 5/5. Knee extensors 5/5. Ankle dorsiflexors 5/5. Ankle plantarflexors 5/5. Sensation: Patient reports ability to feel bilateral lower extremities at time of evaluation, intact as to pain and pressure. Bed Mobility/Transfers: Supine to sit I Sit to supine I Sit to stand I Stand to sit I Bed to chair I Chair to bed I Gait: Per COOKER SYRUP documentation in the morning of 09/04/2018, patient was able to perform level surface ambulation using FWW with for 100 feet x 2 requiring only supervision from COOKER SYRUP. Patient was also able to negotiate three 4 inch steps and two 6 inch steps while holding onto bilateral rails requiring the same level of supervision from COOKER SYRUP. Balance: Static Sitting: Good Dynamic Sitting: Good Static Standing: Fair Dynamic Standing: Fair Assessment: Patient is a 63-year-old male with primary unilateral osteoarthritis of right hip status post right total hip arthroplasty on postoperative day 0. Patient presents with clinical signs and symptoms consistent with current/admitting diagnoses and post reparative status that have resulted to mobility limitations, gait instability, generalized weakness, and impairment of motor control as demonstrated by the following impairment level findings: 1. Decreased strength to R LE major muscle groups 2. Impaired sitting/standing balance 3. Impaired activity tolerance 4. Limitation of joint range of motion in right hip and knee joint due to movement precautions Impairments are contributing to the following functional limitations: 1. Inability to safely ambulate without assistive device and physical assistance 2. Increase completion time for mobility ADL performance 3. Increased fall risk Goals: Goals X1 week 1. Supine-Sit independent MET 2. Sit-Supine independent MET 3. Sit-Stand independent MET 4. Stand-Sit independent MET 5. Bed-Chair independent MET 6. Chair-Bed independent MET 7. Independent gait on level surface with use of least restrictive device for at least 200 feet without report of pain nor dyspnea NOT MET 8. Independent stair negotiation while holding onto bilateral rails for at least 5 steps without report of pain nor dyspnea NOT MET 9. Independent with home exercise program MET 10. Good static and dynamic standing balance/tolerance NOT MET DISCHARGE RECOMMENDATIONS: Patient will benefit from home health PT services in order to progress mobility level using least restrictive assistive ambulatory device/using no device, assess home safety, identify additional equipment needs, and establish a functional maintenance program that will increase ability of patient to remain at home. TREATMENT CODE/TIME: LA Thank you very much for this referral. Christa Figueroa PT, DPT, [facility]
--- NOTE | 2018-09-04 17:26 | INDS_ITS ---
Date of service: 09/04/18 Time of Service: 17:20 PT Notes Inpatient Physical Therapy Discharge Summary Dates: 09/04/2018 Dates of Service: 09/02/2018 through 09/04/2018 This is a clinical summary of care provided on the duration of dates listed above. No charge was made in the completion of this documentation. Referring Doctor: Frank Dove MD PT Orders: PT CONSULT: Mobilize postop right total hip. Total hip precautions right. WBAT to right leg. Get OOB ambulating in room this afternoon. Precautions: Fall. Standard. WBAT on right LE. Total hip precautions on the R hip. Patient Profile/Admitting Diagnosis: Patient is a 63-year-old male with unilateral primary osteoarthritis of right hip status post total hip arthroplasty on postoperative day 0. PMHX: Medical History DVT (deep venous thrombosis) (Chronic ~1996) Esophageal reflux (Acute 11/06/13) Contact granuloma of larynx (Acute) Surgical History History of hernia repair (Chronic ~02/2018) History of tonsillectomy (Chronic) Social History/Home Situation: Patient lives alone in a one-story house with 3 steps to enter, rails on the left going up. Patient took care of ailing parents for over 10 years and signed house to be handicap accessible. House has a low threshold and shower with grab bars. There is a raised toilet seat with grab bars on adjacent bustos. Patient has been independent with all aspects of ADLs with use of a straight cane for MRADLs. He still drives. 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 Current Functional Limitations: Need for assistance with all transfer and ambulation task performance using F WW Equipment Owned/DME: FWW, SBQC, SPC, raised toilet seat Subjective: NT. See PROTOTYPE FABRICATOR notes in the morning of 09/04/2018 Objective: General Observation: NT. See PROTOTYPE FABRICATOR notes in the morning of 09/04/2018 Mental Status: NT. See PROTOTYPE FABRICATOR notes in the morning of 09/04/2018 Pain: NT. See PROTOTYPE FABRICATOR notes in the morning of 09/04/2018 ROM: Right Upper Extremity: Shoulder Flexion WFL. Shoulder abduction WFL. Elbow flexion WFL. Wrist flexion WFL. Functional opening and closing of hand WFL. Left Upper Extremity: Shoulder Flexion WFL. Shoulder abduction WFL. Elbow flexion WFL. Wrist flexion WFL. Functional opening and closing of hand WFL. Right Lower Extremity: Hip flexion to within movement precautions WFL. Hip abduction to within movement precautions WFL. Knee flexion WFL. Ankle dorsifl exion WFL. Ankle plantarflexion WFL. Left Lower Extremity: Hip flexion WFL. Hip abduction WFL. Knee flexion WFL. Ankle dorsiflexion WFL. Ankle plantarflexion WFL. Strength: Right Upper Extremity: Shoulder flexors 5/5. Shoulder abductors 5/5. Elbow flexors 5/5. Elbow extensors 5/5. Fretted Instrument Repairer strong. Left Upper Extremity: Shoulder flexors 5/5. Shoulder abductors 5/5. Elbow flexors 5/5. Elbow extensors 5/5. Fretted Instrument Repairer strong. Right Lower Extremity: Hip flexors 3- /5. Hip abductors 3- /5. Knee flexors 4- /5. Knee extensors 3+ /5. Ankle dorsiflexors 5/5. Ankle plantarflexors 5/5. Left Lower Extremity:Hip flexors 5/5. Hip abductors 5/5. Knee flexors 5/5. Knee extensors 5/5. Ankle dorsiflexors 5/5. Ankle plantarflexors 5/5. Sensation: Patient reports ability to feel bilateral lower extremities at time o f evaluation, intact as to pain and pressure. Bed Mobility/Transfers: Supine to sit I Sit to supine I Sit to stand I Stand to sit I Bed to chair I Chair to bed I Gait: Per PROTOTYPE FABRICATOR documentation in the morning of 09/04/2018, patient was able to perform level surface ambulation using FWW with for 100 feet x 2 requiring only supervision from PROTOTYPE FABRICATOR. Patient was also able to negotiate three 4 inch steps and two 6 inch steps while holding onto bilateral rails requiring the same level of supervision from PROTOTYPE FABRICATOR. Balance: Static Sitting: Good Dynamic Sitting: Good Static Standing: Fair Dynamic Standing: Fair Assessment: Patient is a 63-year-old male with primary unilateral osteoarthritis of right hip status post right total hip arthroplasty on postoperative day 0. Patient presents with clinical signs and symptoms consistent with current/admitting diagnoses and post reparative status that have resulted to mobility limitations, gait instability, generalized weakness, and impairment of motor control as demonstrated by the following impairment level findings: 1. Decreased strength to R LE major muscle groups 2. Impaired sitting/standing balance 3. Impaired activity tolerance 4. Limitation of joint range of motion in right hip and knee joint due to movement precautions Impairments are contributing to the following functional limitations: 1. Inability to safely ambulate without assistive device and physical assistance 2. Increase completion time for mobility ADL performance 3. Increased fall risk Goals: Goals X1 week 1. Supine-Sit independent MET 2. Sit-Supine independent MET 3. Sit-Stand independent MET 4. Stand-Sit independent MET 5. Bed-Chair independent MET 6. Chair-Bed independent MET 7. Independent gait on level surface with use of least restrictive device for at least 200 feet without report of pain nor dyspnea NOT MET 8. Independent stair negotiation while holding onto bilateral rails for at least 5 steps without report of pain nor dyspnea NOT MET 9. Independent with home exercise program MET 10. Good static and dynamic standing balance/tolerance NOT MET DISCHARGE RECOMMENDATIONS: Patient will benefit from home health PT services in order to progress mobility level using least restrictive assistive ambulatory device/using no device, assess home safety, identify additional equipment needs, and establish a functional maintenance program that will increase ability of patient to remain at home. TREATMENT CODE/TIME: [place] Thank you very much for this referral. Christa Figueroa PT, DPT, [facility]
--- NOTE | 2018-09-04 17:44 | PDOC.CMDIS ---
- If Service Date Differs Date of service: 09/04/18 Time of Service: 17:44 LACE Index Scoring Tool - Questions: Length of Stay (in days): 2 Acuity (Admit via E.D.?): No E.D. Visits: 0 - Answers: Total Score: 2 Risk of Readmission: Low Risk Care Management Discharge Reason for Hospitalization: degenerative joint disease of right hip Discharge Plan: Ron will be discharged home with no additional services. He will be transported via private automobile with family. Ron will follow up with his surgeon and discharge plan of care. Patient/Family Education Needs: Discharge plan, limitations, follow up plan of care, Ask Me Three.
== END 2018-09-04 16:18 | disposition home or self-care (01) | DRG 470 ==
LOC: PDS 10:20 → MS 10:32 → PDS 10:45 → MS 09-03 10:11
PROVIDERS: Admitting Provider Orthopaedic Surgery; PCP Student in an Organized Health Care Education/Training Program; Visit Provider Orthopaedic Surgery
PROC: 0SR904A Replacement of Right Hip Joint with Ceramic on Polyethylene Synthetic Substitute, Uncemented, Open Approach (ICD-10-PCS; CPT 27130; principal; 2018-09-02 07:30)
DX: M16.11 Unilateral primary osteoarthritis, right hip (principal); M25.551 Pain in right hip; Z96.641 Presence of right artificial hip joint; K21.9 Gastro-esophageal reflux disease without esophagitis
CPT/HCPCS: 27130; 36415; 85027; 97110; 97162; 97530; 97535; J1650; NC; 72170; 73501; J0690; J1885; J2250; L1686

== ENCOUNTER 2018-09-18 10:44 | Outpatient (CLI) | payer MEDICARE, BC, SELFPAY ==
--- NOTE | 2018-09-18 10:34 | DI.RAD_ITS ---
SYMPTOMS/DIAGNOSIS: CHECK THR COMPONENTS RIGHT HIP AND PELVIS: Two views were obtained and show total hip joint replacement in position. The components appear well seated. No other significant bony abnormality seen.
== END 2018-09-18 11:04 ==
PROVIDERS: PCP Student in an Organized Health Care Education/Training Program; Referring Provider Student in an Organized Health Care Education/Training Program; Visit Provider Orthopaedic Surgery
DX: Z96.641 Presence of right artificial hip joint (principal); Z47.1 Aftercare following joint replacement surgery
CPT/HCPCS: 73502

== ENCOUNTER → 2018-10-16 10:20 | Outpatient (BNVA) | payer MEDICARE, BC, SELFPAY | PROVIDERS: PCP Student in an Organized Health Care Education/Training Program; Referring Provider Student in an Organized Health Care Education/Training Program; Visit Provider Orthopaedic Surgery | DX: Z47.1 Aftercare following joint replacement surgery (principal); Z96.641 Presence of right artificial hip joint ==

== ENCOUNTER → 2018-11-27 09:06 | Outpatient (BNVA) | payer MEDICARE, BC, SELFPAY | PROVIDERS: PCP Student in an Organized Health Care Education/Training Program; Referring Provider Student in an Organized Health Care Education/Training Program; Visit Provider Orthopaedic Surgery | DX: Z47.1 Aftercare following joint replacement surgery (principal); Z96.641 Presence of right artificial hip joint ==

== ENCOUNTER 2019-02-21 08:04 | Outpatient (CLI) | payer MEDICARE, BC, SELFPAY ==
[2019-02-21 09:33] LABS: HCT 47.1 % (40.0-50.0); HGB 15.2 g/dL (13.5-17.5); Mean Corp. HGB Concentration 32.3 g/dL (32.0-36.0); Mean Corpuscular Hemoglobin 27.7 pg (27.0-33.0); Mean Corpuscular Volume 85.8 fL (80-95); Platelet Count 236 x1000/uL (130-400); RBC 5.49 m/cumm (4.50-6.00); RBC Distribution Width 14.9 % (11.8-14.1); White Blood Cell Count 7.23 k/cumm (4.4-10.8)
[2019-02-21 12:22] LABS: Calculated LDL 113 mg/dL; Cholesterol 199 mg/dL (<200); HDL Cholesterol 60 mg/dL (40-60); Triglyceride 130 mg/dL (<150)
[2019-02-25 16:17] LABS: ALT 25 U/L (16-63); AST 18 U/L (15-37); Albumin 4.2 g/dL (3.4-5.0); Alkaline Phosphatase 92 U/L (46-116); Anion Gap 11.2 mmol/L (3-11); BUN 24 mg/dL (7-18); Bilirubin, Total 0.3 mg/dL (0.2-1.0); CO2 26.8 mmol/L (21.0-32.0); CREATININE 1.05 mg/dL (0.70-1.30); Calcium 9.3 mg/dL (8.5-10.1); Chloride 104 mmol/L (98-107); Glucose 95 mg/dL (74-106); Potassium 4.4 mmol/L (3.5-5.1); Sodium 142 mmol/L (136-145); Total Protein 7.2 g/dL (6.4-8.2)
== END 2019-02-21 08:24 ==
PROVIDERS: PCP Student in an Organized Health Care Education/Training Program; Visit Provider Student in an Organized Health Care Education/Training Program
DX: I10 Essential (primary) hypertension (principal)
CPT/HCPCS: 36415; 80053; 80061; 85027

== ENCOUNTER → 2019-03-17 11:35 | Outpatient (BNVA) | payer MEDICARE, BC, SELFPAY | PROVIDERS: PCP Student in an Organized Health Care Education/Training Program; Referring Provider Student in an Organized Health Care Education/Training Program; Visit Provider Orthopaedic Surgery | DX: Z96.641 Presence of right artificial hip joint (principal); M70.61 Trochanteric bursitis, right hip | CPT/HCPCS: 20610; 99214; J1040 ==

== ENCOUNTER → 2019-04-22 08:59 | Outpatient (BNVA) | payer MEDICARE, BC, SELFPAY | PROVIDERS: PCP Student in an Organized Health Care Education/Training Program; Referring Provider Student in an Organized Health Care Education/Training Program; Visit Provider Orthopaedic Surgery | DX: M70.71 Other bursitis of hip, right hip (principal); Z98.890 Other specified postprocedural states | CPT/HCPCS: 99213 ==

== ENCOUNTER 2019-08-26 09:50 | Outpatient (CLI) | payer MEDICARE, BC, SELFPAY ==
--- NOTE | 2019-08-26 09:00 | DI.RAD_ITS ---
EXAM: XR KNEE RT 2V AP,LAT CLINICAL HISTORY: KNEE PAIN TECHNIQUE: COMPARISON: No exams were available for comparison FINDINGS: Two views were obtained. Cartilaginous joint spaces appear fairly well maintained. There may be a s mall knee joint effusion. There are marginal osteophytes of the patella. Minimal spurring or loose body seen associated with the intercondylar eminence of the tibia. No other bony abnormality seen. IMPRESSION: Mild degenerative changes as described above.
== END 2019-08-26 10:10 ==
PROVIDERS: PCP Student in an Organized Health Care Education/Training Program; Referring Provider Student in an Organized Health Care Education/Training Program; Visit Provider Orthopaedic Surgery
DX: M25.461 Effusion, right knee (principal); M25.561 Pain in right knee; M17.11 Unilateral primary osteoarthritis, right knee
CPT/HCPCS: 20610; 99214; 73560; J1040

== ENCOUNTER 2020-03-29 03:52 | Outpatient (CLI) | payer MEDICARE, BC, SELFPAY ==
[2020-03-29 14:53] LABS: ALT 33 U/L (16-63); AST 19 U/L (15-37); Alkaline Phosphatase 77 U/L (46-116); BUN 22 mg/dL (7-18); Bilirubin, Total 0.4 mg/dL (0.2-1.0); CREATININE 1.16 mg/dL (0.70-1.30); Calcium 9.2 mg/dL (8.5-10.1); Calculated LDL 109 mg/dL (<100); Chloride 103 mmol/L (98-107); Cholesterol 219 mg/dL (<200); Glucose 94 mg/dL (74-106); HDL Cholesterol 59 mg/dL (40-60); Magnesium 1.9 mg/dL (1.8-2.4); Potassium 4.5 mmol/L (3.5-5.1); Sodium 138 mmol/L (136-145); Total Protein 7.3 g/dL (6.4-8.2); Triglyceride 256 mg/dL (<150)
[2020-03-29 15:00] LABS: Amylase 78 U/L (25-115); Lipase 204 U/L (73-393)
== END 2020-03-29 04:12 ==
PROVIDERS: PCP Student in an Organized Health Care Education/Training Program; Visit Provider Student in an Organized Health Care Education/Training Program
DX: I25.10 Atherosclerotic heart disease of native coronary artery without angina pectoris (principal); R03.0 Elevated blood-pressure reading, without diagnosis of hypertension; K21.9 Gastro-esophageal reflux disease without esophagitis; R60.0 Localized edema; R10.9 Unspecified abdominal pain; R14.0 Abdominal distension (gaseous); Z83.79 Family history of other diseases of the digestive system
CPT/HCPCS: 36415; 80053; 80061; 83690; 82150; 83735

== ENCOUNTER 2020-10-04 14:50 | Outpatient (CLI) | payer MEDICARE, BC, SELFPAY | END 2020-10-04 14:51 | LOC: CARDO 11-09 10:45 | PROVIDERS: PCP Student in an Organized Health Care Education/Training Program; Referring Provider Student in an Organized Health Care Education/Training Program; Visit Provider Internal Medicine Cardiovascular Disease | DX: R00.2 Palpitations (principal); I47.2 Ventricular tachycardia; I49.3 Ventricular premature depolarization; I47.1 Supraventricular tachycardia; I49.1 Atrial premature depolarization | CPT/HCPCS: 93248 ==

== ENCOUNTER 2020-12-03 15:49 | Outpatient (CLI) | payer MEDICARE, BC, SELFPAY | END 2020-12-03 15:50 | disposition home or self-care (01) | LOC: RT 15:58 | PROVIDERS: PCP Student in an Organized Health Care Education/Training Program; Visit Provider Student in an Organized Health Care Education/Training Program | DX: R00.2 Palpitations (principal); R53.83 Other fatigue | CPT/HCPCS: 94762 ==

== ENCOUNTER 2021-05-17 01:58 | Outpatient (CLI) | payer MEDICARE, BC, SELFPAY ==
--- NOTE | 2021-05-17 06:30 | DI.US_ITS ---
APPROVED REPORT EXAM: Comprehensive 2D, Doppler, and color-flow Echocardiogram Patient Location: Out-Patient [employer] Specialist: Tamiko Randall RDCS (AE) Indications: Baseline EF, SVT, Palpitations Other Information Study Quality: Adequate Conclusion Normal left ventricular wall thickness and chamber size. Estimated ejection fraction is 55 to 60%. Wall motion is normal Normal right ventricular size and systolic function Both atria are normal in size Aortic valve is trileaflet and mildly sclerotic with trace regurgitation Normal mitral valve with trace regurgitation Normal tricuspid valve with trace regurgitation. Estimated right ventricular systolic pressure is 22 mmHg Dilated ascending aorta measuring 4.19 cm Wall motion Left Ventricle The left ventricle is normal size. The left ventricular systolic function is normal. The left ventric ular ejection fraction is within the normal range. There is normal left ventricular wall thickness. T here is normal LV segmental wall motion. There is no ventricular septal defect visualized. LVEF is 55 -60%. Right Ventricle The right ventricle is normal size. The right ventricular systolic function is normal. The RVSP is 22 .0 mmHg. Atria The left atrium size is normal. The right atrium size is normal. The interatrial septum is intact wit h no evidence for an atrial septal defect. Aortic Valve The Aortic valve is mildly sclerotic. Aortic valve is trileaflet. There is no aortic valvular stenosi s. Trace aortic regurgitation. Mitral Valve The mitral valve is normal in structure. No evidence of mitral valve stenosis. Trace mitral regurgita tion. Tricuspid Valve The tricuspid valve is normal in structure. There is no tricuspid valve stenosis. Trace tricuspid reg urgitation. Pulmonic Valve The pulmonary valve is normal in structure. There is no pulmonic valvular stenosis. Trace pulmonic re gurgitation. Great Vessels The aortic root is normal in size. The ascending aorta is severely dilated. Aortic arch is normal in caliber. IVC is normal in size and collapses >50% with inspiration. Pericardium There is no pericardial effusion. 2D Dimensions IVSD d PLAX 0.99 cm M: 0.6-1.2 LV Vol A2C d MOD 89.6 mL LVPW d PLAX 0.98 cm M: 0.6 - 1.2 LV Vol A4C d MOD 110.1 mL LVID d PLAX 4.51 cm M: 4.2 - 5.8 LA vol/ BSA A2C s A-L 20.7 mL/m2 LVDs 3.15 cm M: 2.5 - 4.0 LA vol/ BSA A4C s A-L 14.5 mL/m2 Ao Root d 3.06 cm M: 3.1 - 3.7 LA Vol/ BSA Biplane s A-L 17.4 mL/m2 RA Area A4C 13.03 cm2 LA Area A4C s MOD 12.54 cm2 RA Vol/ BSA A4C s A-L 16.7 mL/m2 LA Area A2C s MOD 14.92 cm2 Ao Asc Diam d 4.19 cm M: 2.6 - 3.4 LV EF A4C MOD 55.1 % LV EF Teichholz 56.4 % LV EF A2C MOD 55.6 % LVEF (Guallpa's) 53.65 % M: 52 - 72 LV EF Biplane MOD 53.7 % LV Volume 73.20 mL M: 62 - 150 SV 53.10 mL LV Volume Index 35.19 mL/m2 M: 34 - 74 SV Index 25.45 mL/m2 LV Vol Biplane MOD 99.0 mL FS 29.35 % M-Mode TAPSE 1.70 cm (M/F) >1.7 LV Diastology MV E' medial 0.077 (>0.07 m/s) E/A Ratio 0.7 LV E/e MED 9.25 (<14) MV E Vmax 0.71 (0.4-1.3 m/s) MV E' lateral 0.105 (>0.1 m/s) MV A Vmax 0.95 (0.4-1.3 m/s) LV E/e LAT 6.75 (<14) MV E/A Ratio 0.72 MV E/E' medial 9.27 MV E/E' lateral 6.79 Aortic Valve LVOT Area 3.25 cm2 AoV Area Vmax 2.53 cm2 LVOT Vmax 1.04 m/s AoV Area/ BSA (Vmax) 1.21 cm2/m2 LVOT Mean Geraldo. 0.69 m/s JOSE RAUL Mean Geraldo. 2.46 cm2 LVOT Peak Grad 4.4 mmHg JOSE RAUL Mean Geraldo. Index 1.18 cm2/m2 LVOT Mean Grad 2.2 mmHg AR DT 2413 msec LVOT VTI 0.211 m AR PHT 700 msec LVOT Diam s 2.00 cm AoV Vmax 1.34 m/s Velocity Ratio 0.77 AoV Mean Geraldo. 0.91 m/s AoV Peak Grad 7.1 mmHg LVOT SV 68.35 mL AoV Mean Grad 3.8 mmHg AoV VTI 0.232 m AoV Area VTI 2.95 cm2 AoV Area/ BSA (VTI) 1.41 cm/m2 Mitral Valve MV DT 211 (160-240 msec) MV PHT 61 msec MV Area PHT 3.59 cm2 MV VTI 0.273 m MV Area VTI 2.51 (4.0-6.0 cm2) Pulmonary Valve PV Vmax 1.23 (0.5-1.5 m/s) RVOT Peak Gr. 2.03 mmHg PV Peak Grad 6.0 mmHg RVOT Mean Gr. 1.05 mmHg PV Mean Grad 2.8 mmHg RVOT VTI 0.152 m PV VTI 0.206 m RVOT Vmax 0.71 m/s Tricuspid Valve TR Peak Grad 19.0 mmHg TR Vmax 2.18 m/s RA Pressure 3.00 mmHg RVSP (TR) 22.0 mmHg
== END 2021-05-17 02:18 ==
PROVIDERS: PCP Student in an Organized Health Care Education/Training Program; Visit Provider Student in an Organized Health Care Education/Training Program
DX: I47.1 Supraventricular tachycardia (principal); R00.2 Palpitations
CPT/HCPCS: 93306

== ENCOUNTER 2022-03-13 03:26 | Outpatient (CLI) | payer MEDICARE, BC, SELFPAY ==
[2022-03-13 15:32] LABS: Ferritin 24 ng/mL (26-388); TSH (W/Ref FT4) 1.42 uIU/mL (0.36-3.74); Vitamin B12 717 pg/mL (193-986)
[2022-03-13 16:24] LABS: Vitamin D 25 Total 28.1 ng/mL (30-100)
== END 2022-03-13 03:27 | disposition home or self-care (01) ==
LOC: LBO 03:26
PROVIDERS: PCP Student in an Organized Health Care Education/Training Program; Visit Provider Internal Medicine Sleep Medicine
DX: E61.1 Iron deficiency (principal); R53.83 Other fatigue; E55.9 Vitamin D deficiency, unspecified; G47.61 Periodic limb movement disorder; G47.33 Obstructive sleep apnea (adult) (pediatric)
CPT/HCPCS: 36415; 82306; 82607; 82728; 84443

== ENCOUNTER 2022-09-14 11:10 | Outpatient (CLI) | payer MEDICARE, BC, SELFPAY ==
--- NOTE | 2022-09-14 09:02 | DI.RAD_ITS ---
Exam(s) XR HIP RT COMPLETE AP PELVIS EXAM: XR HIP RT COMPLETE AP PELVIS INDICATION: right hip pain. COMPARISON: CR XR hip RT complete AP pelvis from 09/18/2018 TECHNIQUE: 2D digital imaging was performed. Two views. FINDINGS: There has been no change in the right total hip prosthesis. There are no suspicious surrounding bony lucencies. The left hip joint space is maintained. There is mild spurring from the acetabula and m argin of the left femoral head. SI joints and pubic symphysis are unremarkable. IMPRESSION: Stable appearance of right total hip prosthesis. Mild degenerative changes of the left hip. DATA REPOSITORY: RADIATION DOSE DELIVERED:
== END 2022-09-14 11:11 | disposition home or self-care (01) ==
LOC: DIORS 11:10
PROVIDERS: PCP Student in an Organized Health Care Education/Training Program; Referring Provider Student in an Organized Health Care Education/Training Program; Visit Provider Physician Assistant
DX: Z96.641 Presence of right artificial hip joint (principal); S76.011A Strain of muscle, fascia and tendon of right hip, initial encounter; W19.XXXA Unspecified fall, initial encounter
CPT/HCPCS: 99213; 73502

== ENCOUNTER 2022-11-09 10:15 | Outpatient (CLI) | payer MEDICARE, BC, SELFPAY ==
--- NOTE | 2022-11-09 09:45 | DI.RAD_ITS ---
Exam(s) XR KNEE LT 3V AP,LAT,KATHE EXAM: XR KNEE LT 3V AP,LAT,KATHE CLINICAL HISTORY: knee pain s/p fall. TECHNIQUE: 2D digital imaging was performed. COMPARISON: CR XR KNEE RT 2V AP,LAT from 08/26/2019 FINDINGS: 3 views No evidence of fracture nor prominent joint effusion. There is significant narrowing of the medial c ompartment and marginal osteophytes. Lateral compartment exhibits normal height. Mild degenerative changes in the patellofemoral compartment. There is mild medial subluxation of the femoral condyles relative to the tibial plateau. No osseous lesions. IMPRESSION: Degenerative changes which are most evident in the medial compartment. DATA REPOSITORY: RADIATION DOSE DELIVERED:
--- NOTE | 2022-11-09 09:45 | DI.RAD_ITS ---
Exam(s) XR KNEE RT 3V AP,LAT,KATHE EXAM: XR KNEE RT 3V AP,LAT,KATHE CLINICAL HISTORY: bilatera knee pain s/p fall. TECHNIQUE: 2D digital imaging was performed. COMPARISON: CR XR KNEE RT 2V AP,LAT from 08/26/2019 CR XR KNEE LT 3V AP,LAT,KATHE from 11/09/2022 FINDINGS: 3 views No evidence of fracture nor joint effusion. Mild degenerative changes, less than is evident in the o pposite-left knee and appearance is similar to August 2019. On the lateral view there is an intra-eze cular exostoses off the anterior aspect of the tibial plateau again noted. There are no osteochondra l defects seen. Some degenerative mild changes noted in the patellofemoral compartment. No ominous osseous lesions. IMPRESSION: As above. DATA REPOSITORY: RADIATION DOSE DELIVERED:
== END 2022-11-09 10:16 | disposition home or self-care (01) ==
LOC: DIORS 10:15
PROVIDERS: PCP Student in an Organized Health Care Education/Training Program; Referring Provider Student in an Organized Health Care Education/Training Program; Visit Provider Student in an Organized Health Care Education/Training Program
DX: S76.011D Strain of muscle, fascia and tendon of right hip, subsequent encounter; X58.XXXD Exposure to other specified factors, subsequent encounter; M17.0 Bilateral primary osteoarthritis of knee
CPT/HCPCS: 73562; 99213

== ENCOUNTER → 2023-01-05 10:06 | Outpatient (BNVA) | payer MEDICARE, BC, SELFPAY | PROVIDERS: PCP Student in an Organized Health Care Education/Training Program; Referring Provider Student in an Organized Health Care Education/Training Program; Visit Provider Student in an Organized Health Care Education/Training Program | DX: M17.0 Bilateral primary osteoarthritis of knee (principal); M65.262 Calcific tendinitis, left lower leg | CPT/HCPCS: 20610; J1040 ==

== ENCOUNTER 2023-03-02 14:30 | Outpatient (CLI) | payer MEDICARE, BC, SELFPAY ==
[2023-03-02 13:52] LABS: Abs Immature Grans 0.08 10^3/uL (0.0-0.06); Absolute Basophil Count 0.04 10^3/uL (0.0-0.2); Absolute Eosinophil Count 0.06 10^3/uL (0.0-0.7); Absolute Monocyte Count 0.99 10^3/uL (0.1-0.8); Absolute Neutrophil Count 6.38 10^3/uL (1.2-6.7); Basophils % 0.5; Eosinophils % 0.7; HCT 47.3 % (40.0-50.0); HGB 15.3 g/dL (13.5-17.5); Immature Grans % 0.9; Lymphocytes % 10.7; MCH 28.7 pg (27.0-33.0); MCHC 32.3 % (32.0-36.0); MCV 89 fL (80-95); MPV 10.7 fL (8.0-11.0); Monocytes % 11.7; Neutrophils % 75.5; Platelet Count 258 10^3/uL (130-400); RBC 5.34 10^6/uL (4.36-5.78); RDW 13.9 % (11.8-14.1); WBC 8.45 10^3/uL (4.4-10.8)
[2023-03-02 14:25] LABS: ALT 36 U/L (16-63); AST 15 U/L (15-37); Albumin 3.8 g/dL (3.4-5.0); Alkaline Phosphatase 80 U/L (46-116); Anion Gap 8.8 mmol/L (3-11); BUN 18 mg/dL (7-18); Bilirubin, Total 0.7 mg/dL (0.2-1.0); CO2 31.2 mmol/L (21.0-32.0); CREATININE 1.1 mg/dL (0.70-1.30); Calcium 9.5 mg/dL (8.5-10.1); Calculated LDL 122 mg/dL (<100); Chloride 101 mmol/L (98-107); Cholesterol 215 mg/dL (<200); Estimated GFR 72.67 (mL/min/1.73m2); Glucose 102 mg/dL (74-106); HDL Cholesterol 57 mg/dL (40-60); Potassium 4.2 mmol/L (3.5-5.1); Sodium 141 mmol/L (136-145); Total Protein 7.6 g/dL (6.4-8.2); Triglyceride 184 mg/dL (<150)
[2023-03-02 14:44] LABS: Vitamin D 25 Total 23.2 ng/mL (30-100)
== END 2023-03-02 14:31 | disposition home or self-care (01) ==
LOC: LBO 14:30
PROVIDERS: PCP Student in an Organized Health Care Education/Training Program; Visit Provider Student in an Organized Health Care Education/Training Program
DX: B99.9 Unspecified infectious disease (principal); Z13.220 Encounter for screening for lipoid disorders; E55.9 Vitamin D deficiency, unspecified; R53.83 Other fatigue; Z13.1 Encounter for screening for diabetes mellitus; Z87.898 Personal history of other specified conditions; Z91.89 Other specified personal risk factors, not elsewhere classified
CPT/HCPCS: 36415; 80053; 80061; 82306; 85025

== ENCOUNTER → 2023-03-02 14:30 | Outpatient (CLI) | payer MEDICARE, BC, SELFPAY ==
--- NOTE | 2023-03-02 12:45 | DI.RAD_ITS ---
Exam(s) XR CHEST 2V PA LATERAL EXAM: XR CHEST 2V PA LATERAL CLINICAL HISTORY: cough; left sided orthopnea R05.9 COUGH R06.01 ORTHOPNEA. TECHNIQUE: 2D digital imaging was performed. COMPARISON: No exams were available for comparison FINDINGS: 2 views: Heart size is normal. The mediastinum is not widened. Right lung is clear but there is significant infiltrate in left lung extending from the hilum out to the lateral pleural surface. No pleural effusions. IMPRESSION: Left-sided infiltrate extending from hilar region out to the pleural surface. Follow-up to resolutio n is recommended to ensure that there is no malignancy here. DATA REPOSITORY: RADIATION DOSE DELIVERED:
== END ==
PROVIDERS: PCP Student in an Organized Health Care Education/Training Program; Visit Provider Student in an Organized Health Care Education/Training Program
DX: R91.8 Other nonspecific abnormal finding of lung field (principal)
CPT/HCPCS: 36415; 80053; 80061; 82306; 71046; 85025

== ENCOUNTER → 2023-03-12 08:00 | Outpatient (BNVA) | payer MEDICARE, BC, SELFPAY | PROVIDERS: PCP Student in an Organized Health Care Education/Training Program; Referring Provider Student in an Organized Health Care Education/Training Program; Visit Provider Physician Assistant Surgical | DX: R91.8 Other nonspecific abnormal finding of lung field (principal); K21.9 Gastro-esophageal reflux disease without esophagitis; G47.33 Obstructive sleep apnea (adult) (pediatric); J18.9 Pneumonia, unspecified organism | CPT/HCPCS: 99215 ==

== ENCOUNTER → 2023-03-15 02:01 | Outpatient (CLI) | payer MEDICARE, BC, SELFPAY ==
--- NOTE | 2023-03-15 08:15 | DI.CT_ITS ---
Exam(s) CT CHEST W EXAM: CT CHEST W CLINICAL HISTORY: unexpected infiltrate (bronchitis-like sx,COUGH,R05.9,R91.8 TECHNIQUE: Imaging Protocol: Axial computed tomography images with coronal and sagittal reformatted images were created and reviewed CONTRAST MATERIAL: Intravenous: Omnipaque 350contrast volume:100 mL. COMPARISON: CR XR CHEST 2V PA LATERAL from 03/02/2023 FINDINGS: Tracheobronchial tree: Patent where visualized. Pulmonary parenchyma: The right lung is clear. There is a 6 mm nodule in the lateral aspect of the l eft lower lobe (series 3, image 393). There is a linear opacity in the left upper lobe extending fro m the hilum to the periphery of the lung with associated bronchiectasis. No definite endobronchial o bstructing lesion is seen is seen. There is a small infiltrate in the inferior lateral aspect of the lingula. Calcified granuloma. Mediastinum and Yesy: No dominant adenopathy or fluid collection. The esophagus is unremarkable. Thyroid gland: Unremarkable. Pleura: No effusion or pneumothorax. Heart: The heart is not dilated. Coronary artery calcifications are present. No pericardial effusion . Aorta: The ascending thoracic aorta measures 4.1 x 4.1 cm. Atherosclerosis. Pulmonary arteries: No large central pulmonary embolus is present. There is inadequate opacification of the peripheral pulmonary arteries due to bolus timing. Upper abdomen: There is fatty infiltration of the liver. Lymph nodes: Within normal limits. Bones: Within normal limits for the patient's age. There are several sclerotic foci seen in the spin e. Soft tissues: Gynecomastia. IMPRESSION: 1. Linear infiltrate seen in the left upper lobe with associated peripheral bronchiectasis. No defin ite endobronchial lesion is appreciated. Scarring or pneumonia should be considered. With the findi ngs in the spine, neoplasm cannot be entirely excluded. PET scan should be considered for further ev aluation. 2. Small infiltrate is seen in the inferior lateral aspect of the lingula. 3. Several sclerotic foci are seen in the spine. These may represent benign lesions such as bone isl ands but metastatic disease should also be considered. Unexpected findings RADIATION DOSE DELIVERED: Total DLP DATA REPOSITORY: All CT scans at this facility are submitted to the National Radiology Data Registry (NRDR) Dose Index Registry (DIR) with the [employer] (A[employer]). RADIATION OPTIMIZATION: All CT scans at this facility use at least one of these dose optimization te chniques: automated exposure control; mA and/or kV adjustment per patient size (includes targeted exa ms where dose is matched to clinical indication); or iterative reconstruction.
[2023-03-15] MEDS: Omnipaque 350 MG/ML 100 ML BTL IJ (15:12)
[2023-03-15] MEDS: Normal Saline - Diluent 50 ML VIAL IJ (15:13)
== END ==
PROVIDERS: PCP Student in an Organized Health Care Education/Training Program; Visit Provider Student in an Organized Health Care Education/Training Program
DX: R05.9 Cough, unspecified (principal); R91.8 Other nonspecific abnormal finding of lung field; J47.9 Bronchiectasis, uncomplicated
CPT/HCPCS: 71260; J3490

== ENCOUNTER → 2023-03-28 10:49 | Outpatient (BNVA) | payer MEDICARE, BC, SELFPAY | PROVIDERS: PCP Student in an Organized Health Care Education/Training Program; Referring Provider Student in an Organized Health Care Education/Training Program; Visit Provider Student in an Organized Health Care Education/Training Program | DX: G47.33 Obstructive sleep apnea (adult) (pediatric) (principal); R91.1 Solitary pulmonary nodule; R05.9 Cough, unspecified; J38.3 Other diseases of vocal cords | CPT/HCPCS: 94664; 99214 ==

== ENCOUNTER 2023-03-29 03:48 | Outpatient (CLI) | payer MEDICARE, BC, SELFPAY ==
[2023-03-30 18:19] LABS: Rheumatoid Factor <8.6 IU/mL (<12.0)
[2023-03-30 18:43] LABS: IgE 7 IU/mL (<158); Parathyroid Hormone,Intact 60 pg/mL (19-88)
[2023-03-31 16:51] LABS: Scl 70 Antibodies, IgG <0.2 U
[2023-04-02 09:32] LABS: Cyclic Citrullinated Peptide <2.5 U/mL (<5.0)
[2023-04-02 10:23] LABS: IgA 264 mg/dL (85-499); IgG 750 mg/dL (610-1616); IgM 45 mg/dL (35-242)
[2023-04-02 11:19] LABS: SS-B (La) Ab, IgG <3.3 CU (<20.0); Sm (Smith) Ab, IgG <8.0 CU (<20.0)
[2023-04-02 11:39] LABS: Myeloperoxidase Ab IgG <0.2 U; Proteinase 3 Ab (PR3) <0.2 U
[2023-04-02 12:13] LABS: Leukemia/Lymphoma by FC (Blood (See below)
[2023-04-02 13:13] LABS: Albumin 62.6 % (55.8-66.1); Albumin g/dL 4.3 g/dL (3.6-5.2); Total Protein 6.9 g/dL (6.3-8.2)
[2023-04-02 14:03] LABS: dsDNA Ab, IgG <22.0 IU/mL (<27.0)
[2023-04-02 16:04] LABS: ANA Interpretation Negative (Negative)
[2023-04-03 15:24] LABS: PTH-Related Peptide 0.6 pmol/L (< or = 4.2)
[2023-04-13 07:11] LABS: Anti-EJ Ab Negative (Negative); Anti-Jo-1 Ab <20 Units (<20); Anti-Ku Ab Negative (Negative); Anti-MDA-5 Ab (CADM-140) <20 Units (<20); Anti-Mi-2-Ab Negative (Negative); Anti-NXP-2 (P140) Ab <20 Units (<20); Anti-OJ Ab Negative (Negative); Anti-PL-12 Ab Negative (Negative); Anti-PL-7 Ab Negative (Negative); Anti-PM/Scl-100 Ab <20 Units (<20); Anti-SRP Ab Negative (Negative); Anti-SS-A 52kD Ab, IgG <20 Units (<20); Anti-TIF-1gamma Ab <20 Units (<20); Anti-U1 RNP Ab <20 Units (<20); Anti-U2 RNP Ab Negative (Negative); Anti-U3 RNP (Fibrillarin) Negative (Negative)
== END 2023-03-29 03:49 | disposition home or self-care (01) ==
PROVIDERS: PCP Student in an Organized Health Care Education/Training Program; Visit Provider Student in an Organized Health Care Education/Training Program
DX: R91.1 Solitary pulmonary nodule (principal); M89.9 Disorder of bone, unspecified
CPT/HCPCS: 36415; 82784; 83516; 84153; 86200; 86235; 88185; 82397; 82785; 82787; 83970; 84165; 86038; 86225; 86431; 88184; 88189

== ENCOUNTER 2023-04-03 04:13 | Outpatient (CLI) | payer MEDICARE, BC, SELFPAY ==
[2023-04-03] MEDS: Levalbuterol HFA 15 GM INH 4 PUFF IH (12:11)
[2023-04-03] MEDS: Inhaler, Assist Device 1 EACH MC (12:12)
--- NOTE | 2023-04-03 13:12 | W.PFT ---
Date of service: 04/03/23 Time of Service: 09:54 Pulmonary Function Test Result Indications: Chronic cough Interpretation Spirometry: There is no airflow limitation. No bronchodilator response. Lung Volumes: Normal lung volumes Diffusion Capacity: Normal diffusion Airway Pressure: Normal airways resistance Impression Normal pulmonary function Clinical Correlation therefore is recommended.
== END 2023-04-03 04:14 | disposition home or self-care (01) ==
LOC: RT 04:13
PROVIDERS: PCP Student in an Organized Health Care Education/Training Program; Visit Provider Student in an Organized Health Care Education/Training Program
DX: J45.909 Unspecified asthma, uncomplicated (principal)
CPT/HCPCS: 94060; 94726; 94729

== ENCOUNTER 2023-05-16 16:57 | Outpatient (CLI) | payer MEDICARE, BC, SELFPAY ==
--- NOTE | 2023-05-16 16:45 | RT.EKG_ITS ---
APPROVED REPORT Exam: Resting ECG Reason for Exam: assess for EKG changes Patient Location: O HR:94 bpm ECG Measurements Heart Rate 94 AXIS LA 152 P 38 QRSd 93 QRS -3 QT 357 T 31 QTc 447 Conclusion Sinus tachycardia...rate> 99 Ventricular premature complex...V complex w/ short R-R interval
== END 2023-05-16 16:58 | disposition home or self-care (01) ==
LOC: DI.KIM 16:58
PROVIDERS: PCP Student in an Organized Health Care Education/Training Program; Visit Provider Nurse Practitioner Adult Health
DX: R07.89 Other chest pain (principal)
CPT/HCPCS: 93010

== ENCOUNTER 2023-05-17 13:49 | Outpatient (CLI) | payer MEDICARE, BC, SELFPAY ==
[2023-05-17 13:11] LABS: Bilirubin Negative (Negative); Blood Negative (Negative); Clarity Clear (Clear); Glucose Negative (Negative); Ketones Negative (Negative); Leukocyte Esterase Negative (Negative); Nitrite Negative (Negative); Specific Gravity 1.015 (1.005-1.025); Urobilinogen 0.2 mg/dL (Up to 0.2)
[2023-05-17 13:16] LABS: Bacteria Negative HPF (Negative); C & S Indicated? No; Casts Negative LPF (Negative); Crystals Negative HPF (Negative); Epithelial Cells Rare HPF (Negative); Mucus Negative (Negative); RBC 0-2 HPF (0-2); WBC 0-2 HPF (0-5)
== END 2023-05-17 13:50 | disposition home or self-care (01) ==
LOC: LBO 13:50
PROVIDERS: PCP Student in an Organized Health Care Education/Training Program; Visit Provider Nurse Practitioner Adult Health
DX: R31.21 Asymptomatic microscopic hematuria (principal); R10.9 Unspecified abdominal pain; Z87.440 Personal history of urinary (tract) infections
CPT/HCPCS: 81003; 81015

== ENCOUNTER → 2023-06-05 02:40 | Outpatient (CLI) | payer MEDICARE, BC, SELFPAY ==
--- NOTE | 2023-06-05 07:30 | DI.RAD_ITS ---
Exam(s) XR SACRUM EXAM: XR SACRUM CLINICAL HISTORY: compare to pet ct,bone pain,?lesions,?lytic,? islands,?mets. TECHNIQUE: 2D digital imaging was performed. FINDINGS: Two views. There is a right hip prosthesis. No evidence of sacral fracture. Some degenerative change noted in the SI joints but no ankylosis. Sclerotic bone lesion in the left side of the sacrum noted which harjinder sures approximately 1.2 x 0.8 cm and corresponds to finding on recent CT scan. This finding may repr esent benign bone islands or possibly non FDG avid sclerotic metastatic lesion. Otherwise, field of view here includes the L5-S1 facet joints which exhibit degenerative change. IMPRESSION: As above. DATA REPOSITORY: RADIATION DOSE DELIVERED:
--- NOTE | 2023-06-05 07:30 | DI.RAD_ITS ---
Exam(s) XR THORACIC SPINE COMPLETE EXAM: XR THORACIC SPINE COMPLETE CLINICAL HISTORY: compare to pet ct,?mets,?islands,?lytic.?lesions,pain,m54.9,m89.9,m89.8x9. TECHNIQUE: 2D digital imaging was performed. COMPARISON: No exams were available for comparison FINDINGS: 3 views No evidence of fracture or listhesis nor prominent disc space narrowing. No widening of the paraspin al lines. No obvious osseous lesions. No scoliosis. IMPRESSION: No significant radiographic findings in the thoracic spinal column. DATA REPOSITORY: RADIATION DOSE DELIVERED:
--- NOTE | 2023-06-05 07:30 | DI.RAD_ITS ---
Exam(s) XR LUMBAR SPINE COMPLETE EXAM: XR LUMBAR SPINE COMPLETE CLINICAL HISTORY: compare to pet ct,back pain,? lesions,? mets,? lytic,? islands. TECHNIQUE: 2D digital imaging was performed. CR XR THORACIC SPINE COMPLETE from 06/05/2023 FINDINGS: Five views. No evidence of fracture nor listhesis. No pars defects. There is moderate disc space narrowing at L 4-5 and L2-3 levels as well as T12-L1. Also anterior osseous lipping at these levels. There are deg enerative changes at the L5-S1 facet joints. There is no scoliosis. There is a lucent area in the a nterosuperior aspect of L2 vertebral body seen on the lateral view. Difficult to determine if this i s a lytic lesion or overlying bowel gas. There was, however, no lytic lesion evident at this level o n the recent PET-CT scan of 04/18/2023. There is a sclerotic density in the right side of the pelvis at the upper right SI joint level. Sargent arabella, in reviewing the PET-CT scan images this appears to be degenerative bridging across the superior anterior aspect of the right SI joint. The nonexpansile sclerotic lesion in the posterior superior aspect of L5 vertebral body located poste riorly as seen on the recent CT scan is difficult to appreciate on the plain films. IMPRESSION: Subtle nonspecific radiographic findings in the lumbar spine as described above. DATA REPOSITORY: RADIATION DOSE DELIVERED:
== END ==
PROVIDERS: PCP Student in an Organized Health Care Education/Training Program; Visit Provider Student in an Organized Health Care Education/Training Program
DX: M51.37 Other intervertebral disc degeneration, lumbosacral region (principal)
CPT/HCPCS: 72072; 72110; 72220

== ENCOUNTER → 2023-06-13 08:16 | Outpatient (BNVA) | payer MEDICARE, BC, SELFPAY | PROVIDERS: PCP Student in an Organized Health Care Education/Training Program; Referring Provider Student in an Organized Health Care Education/Training Program; Visit Provider Nurse Practitioner Gerontology | DX: R31.29 Other microscopic hematuria (principal); N40.0 Benign prostatic hyperplasia without lower urinary tract symptoms | CPT/HCPCS: 51798; 81003; 99215 ==

== ENCOUNTER 2023-06-13 09:16 | Outpatient (REF) | payer MEDICARE, BC, SELFPAY ==
[2023-06-13 10:26] LABS: Bilirubin Negative (Negative); Blood Negative (Negative); Clarity Clear (Clear); Glucose Negative (Negative); Ketones Negative (Negative); Leukocyte Esterase Negative (Negative); Nitrite Negative (Negative); Specific Gravity <= 1.005 (1.005-1.025); Urobilinogen 0.2 mg/dL (Up to 0.2)
== END 2023-06-13 09:17 | disposition home or self-care (01) ==
LOC: LBN 09:16
PROVIDERS: PCP Student in an Organized Health Care Education/Training Program; Visit Provider Nurse Practitioner Gerontology
DX: R31.29 Other microscopic hematuria (principal)
CPT/HCPCS: 81003

== ENCOUNTER → 2023-06-26 09:06 | Outpatient (BNVA) | payer MEDICARE, BC, SELFPAY | PROVIDERS: PCP Student in an Organized Health Care Education/Training Program; Referring Provider Student in an Organized Health Care Education/Training Program; Visit Provider Physician Assistant Surgical | DX: R05.9 Cough, unspecified (principal); G47.33 Obstructive sleep apnea (adult) (pediatric); J38.3 Other diseases of vocal cords; M89.9 Disorder of bone, unspecified; R91.1 Solitary pulmonary nodule | CPT/HCPCS: 99214 ==

== ENCOUNTER 2023-07-06 09:44 | Outpatient (CLI) | payer MEDICARE, BC, SELFPAY ==
[2023-07-06 10:59] LABS: Vitamin D 25 Total 53.9 ng/mL (30-100)
== END 2023-07-06 09:45 | disposition home or self-care (01) ==
LOC: LBO 09:45
PROVIDERS: PCP Student in an Organized Health Care Education/Training Program; Visit Provider Student in an Organized Health Care Education/Training Program
DX: R79.89 Other specified abnormal findings of blood chemistry (principal); K90.9 Intestinal malabsorption, unspecified; R29.890 Loss of height
CPT/HCPCS: 36415; 82306

== ENCOUNTER 2023-07-09 15:52 | Outpatient (CLI) | payer MEDICARE, BC, SELFPAY ==
--- NOTE | 2023-07-09 14:30 | DI.RAD_ITS ---
Exam(s) XR STANDING ALIGNMENT EXAM: XR STANDING ALIGNMENT CLINICAL HISTORY: alignment eval pre TKA. TECHNIQUE: 2D digital imaging was performed. Standing AP views were performed from the pelvis throu gh the ankles. COMPARISON: CR XR KNEE RT 2V AP,LAT from 08/26/2019 CR XR HIP RT COMPLETE AP PELVIS from 09/14/2022 CR XR KNEE RT 3V AP,LAT,KATHE from 11/09/2022 CR XR KNEE LT 3V AP,LAT,KATHE from 11/09/2022 FINDINGS: BONES: No acute fracture is present. No bony destructive lesion is seen. There is thickening of the cortex in the proximal to mid tibial diaphysis medially. There are no aggressive features. Findings could be secondary to subacute stress fracture or old fracture deformity. Leg length discrepancy: No significant leg length discrepancy. JOINTS: Knees: The right knee joint spaces are maintained. there is moderate to severe narrowing of the medial femoral tibial joint space and periarticular spurring involving the left knee. The ankle joints are unremarkable. Hips: The right hip prosthesis appears unchanged. There are mild degenerative changes of the left hi p without joint space narrowing. SOFT TISSUE: Bilateral lower leg edema. IMPRESSION: Advanced degenerative changes of the left knee. . No significant leg length discrepancy. Thickening of the cortex of the proximal tibial metadiaphysis could represent subacute stress fractur e or related to old trauma MRI could be considered for further evaluation. Unexpected findings DATA REPOSITORY: RADIATION DOSE DELIVERED:
== END 2023-07-09 15:53 | disposition home or self-care (01) ==
LOC: DIORS 15:52
PROVIDERS: PCP Student in an Organized Health Care Education/Training Program; Referring Provider Student in an Organized Health Care Education/Training Program; Visit Provider Student in an Organized Health Care Education/Training Program
DX: M17.12 Unilateral primary osteoarthritis, left knee (principal); M89.9 Disorder of bone, unspecified
CPT/HCPCS: 99215; 77073

== ENCOUNTER 2023-07-23 05:46 | Outpatient (CLI) | payer MEDICARE, BC, SELFPAY ==
[2023-07-23 11:34] LABS: HCT 47.6 % (40.0-50.0); HGB 15.5 g/dL (13.5-17.5); MCH 28.5 pg (27.0-33.0); MCHC 32.6 % (32.0-36.0); MCV 88 fL (80-95); MPV 12.4 fL (8.0-11.0); Platelet Count 224 10^3/uL (130-400); RBC 5.44 10^6/uL (4.36-5.78); RDW 14.4 % (11.8-14.1); RDW-SD 46.2 fL; WBC 7.05 10^3/uL (4.4-10.8)
[2023-07-23 11:55] LABS: Anion Gap 9.1 mmol/L (3-11); BUN 20 mg/dL (7-18); CO2 27.9 mmol/L (21.0-32.0); CREATININE 1.2 mg/dL (0.70-1.30); Calcium 9.2 mg/dL (8.5-10.1); Chloride 105 mmol/L (98-107); Estimated GFR 65.06 (mL/min/1.73m2); Glucose 120 mg/dL (74-106); Potassium 4.1 mmol/L (3.5-5.1); Sodium 142 mmol/L (136-145)
== END 2023-07-23 05:47 | disposition home or self-care (01) ==
LOC: LBO 05:46
PROVIDERS: PCP Student in an Organized Health Care Education/Training Program; Visit Provider Student in an Organized Health Care Education/Training Program
DX: M17.12 Unilateral primary osteoarthritis, left knee (principal); Z01.818 Encounter for other preprocedural examination
CPT/HCPCS: 36415; 80048; 85027

== ENCOUNTER → 2023-12-12 08:42 | Outpatient (BNVA) | payer MEDICARE, BC, SELFPAY | PROVIDERS: PCP Student in an Organized Health Care Education/Training Program; Referring Provider Student in an Organized Health Care Education/Training Program; Visit Provider Nurse Practitioner Gerontology | DX: R31.29 Other microscopic hematuria (principal); N40.0 Benign prostatic hyperplasia without lower urinary tract symptoms | CPT/HCPCS: 51798; 99213 ==

== ENCOUNTER 2024-01-08 08:06 | Outpatient (CLI) | payer MEDICARE, BC, SELFPAY ==
--- NOTE | 2024-01-08 08:15 | RT.EKG_ITS ---
APPROVED REPORT Exam: Resting ECG Reason for Exam: PACs Patient Location: O HR:88 bpm ECG Measurements Heart Rate 88 AXIS MO 154 P 27 QRSd 86 QRS -4 QT 353 T 30 QTc 427 Conclusion Sinus rhythm...normal P axis, V-rate 50- 99 Atrial premature complex...SV complex w/ short R-R interval Otherwise normal ECG
== END 2024-01-08 08:07 | disposition home or self-care (01) ==
PROVIDERS: PCP Student in an Organized Health Care Education/Training Program; Visit Provider Nurse Practitioner
DX: Z01.818 Encounter for other preprocedural examination
CPT/HCPCS: 93010

== ENCOUNTER 2024-01-21 02:04 | Outpatient (CLI) | payer MEDICARE, BC, SELFPAY ==
[2024-01-21 09:21] LABS: HGB 15.8 g/dL (13.5-17.5); MCH 28.9 pg (27.0-33.0); MCHC 32.9 % (32.0-36.0); MCV 88 fL (80-95); Platelet Count 210 10^3/uL (130-400); RBC 5.47 10^6/uL (4.36-5.78); RDW 14.2 % (11.8-14.1); RDW-SD 45.6 fL; WBC 5.54 10^3/uL (4.4-10.8)
[2024-01-21 09:51] LABS: Anion Gap 7.6 mmol/L (3-11); BUN 17 mg/dL (7-18); CO2 30.4 mmol/L (21.0-32.0); CREATININE 1.2 mg/dL (0.70-1.30); Calcium 9.6 mg/dL (8.5-10.1); Chloride 103 mmol/L (98-107); Estimated GFR 65.06 (mL/min/1.73m2); Glucose 115 mg/dL (74-106); Potassium 4.4 mmol/L (3.5-5.1); Sodium 141 mmol/L (136-145)
== END 2024-01-21 02:05 | disposition home or self-care (01) ==
LOC: LBO 02:04
PROVIDERS: PCP Student in an Organized Health Care Education/Training Program; Visit Provider Student in an Organized Health Care Education/Training Program
DX: M17.12 Unilateral primary osteoarthritis, left knee (principal); Z01.818 Encounter for other preprocedural examination
CPT/HCPCS: 36415; 80048; 85027

== ENCOUNTER 2024-02-05 05:54 | Day surgery (SDC) | payer MEDICARE, BC, SELFPAY ==
[2024-02-05] VITALS (15 sets, daily range): BP systolic 130–152; BP diastolic 72–93; PULSE 64–102; RESP 15–28; TEMP 36.2–36.9; O2SAT 93–96; BMI 31.9
--- NOTE | 2024-02-05 06:42 | ANES.PREOP_ITS ---
General Info Date of Service Date Performed: 02/05/24 Height: 5 ft 8 in Weight: 95.4 kg Body Mass Index (BMI): 31.9 Surgical Procedure: Operation Date: 02/05/24 07:40 Proposed Procedure Side Surgeon p Knee Total Arthroplasty Left Sandoval Rose MD Meds Allergies and Home Medications Allergies Allergy/AdvReac Type Severity Reaction Status Date / Time amoxicillin Allergy rash, h/a, Verified 02/05/24 06:13 vomitting doxycycline Allergy rash, h/a, Verified 02/05/24 06:13 vomitting Home Medication ?Medication ?Instructions ?Recorded acetaminophen 650 mg 650 mg PO Q8H PRN 11/04/20 tablet,extended release (Tylenol 8 Hour) sucralfate 1 gram tablet 1 g PO BID PRN 04/19/21 diclofenac sodium 1 % topical gel 2 g topical BID PRN 03/02/23 (Voltaren) fluticasone propionate 50 2 spray intranasal DAILY 03/12/23 mcg/actuation nasal spray,suspension (Allergy Relief (fluticasone)) ibuprofen 200 mg capsule (Motrin 400 mg PO HS PRN 09/21/23 IB) lisinopril 5 mg tablet 5 mg PO DAILY #90 tabs 09/30/23 omeprazole magnesium 20 mg 20 mg PO QDAY 12/12/23 tablet,delayed release (Prilosec OTC) Current Visit Medications: Current Medications Generic Name Dose Route Start Last Admin Trade Name Freq PRN Reason Stop Dose Admin Acetaminophen 1,000 mg 02/05/24 06:00 Acetaminophen 500 Mg Tab PO 02/05/24 18:00 PREOP VIC Celecoxib 400 mg 02/05/24 06:00 Celecoxib 200 Mg Cap PO 02/05/24 18:00 PREOP VIC Gabapentin 300 mg 02/05/24 06:00 Gabapentin 300 Mg Cap PO 02/05/24 18:00 PREOP VIC Cefazolin Sodium/Dextrose 2 gm in 50 mls @ 100 mls/hr 02/05/24 06:00 Ancef Duplex IVPB 02/05/24 18:00 PREOP VIC Tranexamic Acid/Sodium Chloride 1,000 mg in 100 mls @ 600 mls/hr 02/05/24 06:00 IVPB 02/05/24 18:00 PREOP VIC Ringer's Solution 500 mls @ 30 mls/hr 02/05/24 06:00 IV 03/06/24 05:59 INFUSION VIC IV Miscellaneous Supplies 1 each 02/05/24 06:00 Iv Access IV 03/05/24 23:59 DIRECTED VIC Sodium Chloride 0 ml 02/05/24 06:00 Normal Saline Flush 10 Ml Syr IV 03/05/24 23:59 PRN PRN Sodium Chloride 0 ml 02/05/24 06:00 Normal Saline 10 Ml Vial IJ 03/05/24 23:59 DIRECTED PRN Sterile Water 0 ml 02/05/24 06:00 Water,Injection,Sterile 10 Ml Vial IJ 03/05/24 23:59 DIRECTED PRN PFSH Active Problems Active Problems: Problem Status Onset Code Hypertrophy of bone, left tibia Acute M89.362 Arthritis of left knee Acute M17.12 Microscopic hematuria Acute R31.29 Left knee DJD Acute M17.12 Bone lesion Acute M89.9 Flank pain Acute R10.9 Abnormal positron emission tomography (PET) scan Acute ~202 R94.8 ETD (eustachian tube dysfunction) Acute H69.90 Cough Acute R05.9 Pulmonary nodule Acute R91.1 Lesion of vertebra Acute M89.9 Loss of height Acute R29.890 Malabsorption Acute K90.9 At risk for osteoporosis Acute Z91.89 Bronchitis Acute J40 Pulmonary infiltrate in left lung on CXR Acute R91.8 Degenerative arthritis of knee, bilateral Acute M17.0 Strain of flexor muscle of right hip Acute S76.011A Vitamin D deficiency Acute E55.9 Iron deficiency Acute E61.1 Fatigue Acute R53.83 Periodic limb movement disorder Acute G47.61 Obstructive sleep apnea of adult Acute G47.33 Mild obstructive sleep apnea Acute G47.33 Long-term current use of proton pump inhibitor therapy Acute Z79.899 Gastric polyps Acute K31.7 Laryngopharyngeal reflux Acute K21.9 Hx of edema Chronic Z87.898 Family history of CHF (congestive heart failure) Acute Z82.49 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 Benign polyp of duodenum Acute K31.7 Phlegm in throat Acute R09.89 SVT (supraventricular tachycardia) Chronic I47.1 Heart palpitations Acute R00.2 History of esophagogastroduodenoscopy (EGD) Chronic Z98.890 Deviated nasal septum Acute J34.2 Abdominal pain Acute R10.9 Dysphagia, pharyngoesophageal Acute R13.14 Gastroesophageal reflux disease Chronic K21.9 Post-nasal drip Acute R09.82 Fluttering sensation of heart Acute R00.2 Chronic rhinitis Chronic 11/06/19 J31.0 Seborrheic keratoses Acute L82.1 Epidermal cyst Acute L72.0 Knee effusion, right Acute M25.461 Neck pain on left side Chronic M54.2 Swelling of knee joint, right Acute M25.461 Edema Acute R60.9 Trochanteric bursitis, right hip Acute M70.61 Varicose veins of bilateral lower extremities with other complications Acute I83.893 Chronic pharyngitis Acute J31.2 Globus sensation Acute R09.89 Status post hernia repair Chronic Z98.890, Z87.19 Status post total hip replacement, right Chronic 09/02/18 Z96.641 BMI 33.0-33.9,adult Chronic Z68.33 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 Xerostomia Chronic R68.2 Hoarseness or changing voice Chronic 11/06/13 R49.9 Esophageal reflux Chronic 11/06/13 K21.9 Carpal tunnel syndrome Chronic 01/11/11 G56.00 Medical History Medical History DVT (deep venous thrombosis) (~1996) left legdvtx3 with coumadin use till 2010.[facility] [place] hematology evaluation no hereditary predilection despite strong maternal side occurrence Pneumonia Phlegm in throat Non-restorative sleep Contact granuloma of larynx [facility] [place] excision x2, thought gerd related followed by ent,swallowing difficuty endoscopy rec to check for barretts Surgical History Surgical History History of hip replacement (R) 2019 H/O endoscopy 06/23/20 [facility] Dr. Hartman H/O colonoscopy 06/23/20 [facility] Dr. Hartman History of tonsillectomy History of hernia repair (~02/2018) adi Tobacco Smoking/Tobacco Use Status: Never Passive smoking exposure: No Alcohol Alcohol Intake: current Alcohol intake frequency: a few times a month Alcohol type: wine Substance Use Substance use: Never Substance use type: does not use Vital Signs and Lab Results Vital Signs Most Recent Vital Signs in EMR: Most Recent Vital Signs Temp Pulse Resp BP Pulse Ox 36.6 C 72 20 133/76 96 02/05/24 06:15 02/05/24 06:15 02/05/24 06:15 02/05/24 06:15 02/05/24 06:15 Lab Results Blood Type / Crossmatch: 2 No Data to Display Complete Blood Count: 2 White Blood Count 5.54 10^3/uL (4.4-10.8) 01/21/24 09:00 Red Blood Count 5.47 10^6/uL (4.36-5.78) 01/21/24 09:00 Hemoglobin 15.8 g/dL (13.5-17.5) 01/21/24 09:00 Hematocrit 48.0 % (40.0-50.0) 01/21/24 09:00 Platelet Count 210 10^3/uL (130-400) 01/21/24 09:00 Complete Metabolic Panel: 2 Sodium 141 mmol/L (136-145) 01/21/24 09:00 Potassium 4.4 mmol/L (3.5-5.1) 01/21/24 09:00 Chloride 103 mmol/L (98-107) 01/21/24 09:00 Carbon Dioxide 30.4 mmol/L (21.0-32.0) 01/21/24 09:00 BUN 17 mg/dL (7-18) 01/21/24 09:00 Creatinine 1.2 mg/dL (0.70-1.30) 01/21/24 09:00 Est GFR (CKD-EPI 2020) 65.06 (mL/min/1.73m2) 01/21/24 09:00 Calcium 9.6 mg/dL (8.5-10.1) 01/21/24 09:00 Glucose 115 mg/dL (74-106) H 01/21/24 09:00 Liver Function Panel: 2 No Data to Display Coagulation Panel: 2 No Data to Display Cardiac Panel: 2 No Data to Display Arterial Blood Gas: 2 No Data to Display Venous Blood Gas: 2 No Data to Display Pancreas Panel: 2 No Data to Display Thyroid Panel: 2 No Data to Display Infectious Disease: 2 No Data to Display Blood Cultures: 2 No Data to Display Toxicology Panel: 2 No Data to Display Imaging and Studies Imaging and Studies Study information below may be from another EMR and interpreted by another provider. Please see original notes in EMR for more complete details. EKG Summary: EKG PATIENT NAME: Ron Valdez UNIT #: [id number] ORDERING PROVIDER: Regina Higgins NP PRIMARY CARE PROVIDER: SHWETHA JARRELL DO DATE/TIME OF SERVICE: 01/08/24 0702 : 1955 PERFORMING LOCATION: [facility] APPROVED REPORT Exam: Resting ECG Reason for Exam: PACs Patient Location: HR:88 bpm ECG Measurements Heart Rate 88 AXIS DC 154 P 27 QRSd 86 QRS -4 QT 353 T30 QTc 427 Conclusion Sinus rhythm...normal P axis, V-rate 50- 99 Atrial premature complex...SV complex w/ short R-R interval Otherwise normal ECG - <Electronically signed by CHUY BANG MD in OV> E-Sign Date: 01/08/24 E-Sign Time: 0841 Echocardiogram Summary: Patient Name: Ron Valdez Unit #: [id number] Loc: Ordering Provider: Shwetha Jarrell DO Status: REG [facility] Primary Care Provider: Shwetha Jarrell DO Date of Exam: 05/17/21 Sex: M Admission Date: 05/17/21 : 1955 Age: 66 APPROVED REPORT EXAM: Comprehensive 2D, Doppler, and color-flow Echocardiogram Patient Location: Out-Patient [facility] Handler: Tamiko Randall RDCS (AE) Indications: Baseline EF, SVT, Palpitations Other Information Study Quality: Adequate Conclusion Normal left ventricular wall thickness and chamber size. Estimated ejection fraction is 55 to 60%. Wall motion is normal Normal right ventricular size and systolic function Both atria are normal in size Aortic valve is trileaflet and mildly sclerotic with trace regurgitation Normal mitral valve with trace regurgitation Normal tricuspid valve with trace regurgitation. Estimated right ventricular systolic pressure is 22 mmHg Dilated ascending aorta measuring 4.19 cm Wall motion Left Ventricle The left ventricle is normal size. The left ventricular systolic function is normal. The left ventricular ejection fraction is within the normal range. There is normal left ventricular wall thickness. There is normal LV segmental wall motion. There is no ventricular septal defect visualized. LVEF is 55-60%. Right Ventricle The right ventricle is normal size. The right ventricular systolic function is normal. The RVSP is 22.0 mmHg. Atria The left atrium size is normal. The right atrium size is normal. The interatrial septum is intact with no evidence for an atrial septal defect. Aortic Valve The Aortic valve is mildly sclerotic. Aortic valve is trileaflet. There is no aortic valvular stenosis. Trace aortic regurgitation. Mitral Valve The mitral valve is normal in structure. No evidence of mitral valve stenosis. Trace mitral regurgitation. Tricuspid Valve The tricuspid valve is normal in structure. There is no tricuspid valve stenosis. Trace tricuspid regurgitation. Pulmonic Valve The pulmonary valve is normal in structure. There is no pulmonic valvular stenosis. Trace pulmonic regurgitation. Great Vessels The aortic root is normal in size. The ascending aorta is severely dilated. Aortic arch is normal in caliber. IVC is normal in size and collapses >50% with inspiration. Pericardium There is no pericardial effusion. 2D Dimensions IVSD d PLAX 0.99 cm M: 0.6-1.2LV Vol A2C d MOD 89.6 mL LVPW d PLAX 0.98 cm M: 0.6 - 1.2LV Vol A4C d MOD 110.1 mL LVID d PLAX 4.51 cm M: 4.2 - 5.8LA vol/ BSA A2C s A-L20.7 mL/m2 LVDs 3.15 cm M: 2.5 - 4.0LA vol/ BSA A4C s A-L14.5 mL/m2 Ao Root d 3.06 cm M: 3.1 - 3.7LA Vol/ BSA Biplane s A-L 17.4 mL/m2 RA Area A4C13.03 cm2LA Area A4C s MOD 12.54 cm2 RA Vol/ BSA A4C s A-L 16.7 mL/m2LA Area A2C s MOD 14.92 cm2 Ao Asc Diam d 4.19 cm M: 2.6 - 3.4LV EF A4C MOD 55.1 % LV EF Teichholz 56.4 %LV EF A2C MOD 55.6 % LVEF (Guallpa's)53.65 % M: 52 - 72LV EF Biplane MOD 53.7 % LV Iwidlv10.20 mL M: 62 - 558BC95.10 mL LV Volume Index35.19 mL/m2 M: 34 - 74SV Index25.45 mL/m2 LV Vol Biplane MOD 99.0 mL FS29.35 % M-Mode TAPSE 1.70 cm (M/F) >1.7 LV Diastology MV E' medial0.077 (>0.07 m/s)E/A Ratio 0.7 LV E/e MED9.25 (<14)MV E Vmax 0.71 (0.4-1.3 m/s) MV E' lateral0.105 (>0.1 m/s)MV A Vmax 0.95 (0.4-1.3 m/s) LV E/e LAT6.75 (<14)MV E/A Ratio 0.72 MV E/E' medial 9.27 MV E/E' lateral6.79 Aortic Valve LVOT Area3.25 cm2AoV Area Vmax2.53 cm2 LVOT Vmax 1.04 m/sAoV Area/ BSA (Vmax)1.21 cm2/m2 LVOT Mean Geraldo.0.69 m/sAVA Mean Geraldo.2.46 cm2 LVOT Peak Grad 4.4 mmHgAVA Mean Geraldo. Index1.18 cm2/m2 LVOT Mean Grad 2.2 mmHgAR DT 2413 msec LVOT VTI0.211 mAR PHT 700 msec LVOT Diam s 2.00 cm AoV Vmax1.34 m/s Velocity Ratio 0.77 AoV Mean Geraldo.0.91 m/s AoV Peak Grad7.1 mmHg LVOT SV 68.35 mL AoV Mean Grad3.8 mmHg AoV VTI0.232 m AoV Area VTI2.95 cm2 AoV Area/ BSA (VTI)1.41 cm/m2 Mitral Valve MV DT 211 (160-240 msec) MV PHT61 msec MV Area PHT 3.59 cm2 MV VTI 0.273 m MV Area VTI 2.51 (4.0-6.0 cm2) Pulmonary Valve PV Vmax 1.23 (0.5-1.5 m/s)RVOT Peak Gr.2.03 mmHg PV Peak Grad 6.0 mmHgRVOT Mean Gr.1.05 mmHg PV Mean Grad 2.8 mmHgRVOT VTI0.152 m PV VTI 0.206 mRVOT Vmax 0.71 m/s Tricuspid Valve TR Peak Grad 19.0 mmHgTR Vmax 2.18 m/s RA Pressure 3.00 mmHg RVSP (TR) 22.0 mmHg Ordered By: Shwetha Jarrell DO CC: Dictated By: Chuy Bang M.D. 05/17/21 1202 <Electronically signed by Chuy Bang M.D. in OV> 05/17/21 1208 Transcribed By: Chuy Bang MD Pulmonary Function Summary: Pulmonary Function Test PATIENT NAME: Ron Valdez UNIT #: [id number] ADMITTING PROVIDER: Beatriz Khan M.D. PRIMARY CARE PROVIDER: SHWETHA JARRELL DO DATE OF ADMIT: 04/03/23 : 1955 Date of service: 04/03/23 Time of Service: 09:54 Pulmonary Function Test Result Indications: Chronic cough Interpretation Spirometry: There is no airflow limitation. No bronchodilator response. Lung Volumes: Normal lung volumes Diffusion Capacity: Normal diffusion Airway Pressure: Normal airways resistance Impression Normal pulmonary function Clinical Correlation therefore is recommended. Anesthesia Assessment and Plan Anesthesia History Personal History: No History of Anesthesia Complications Family History: No Family History of Anesthesia Complications Exercise Tolerance Exercise Tolerance: Metabolic Equivalents>4 Pertinent Negatives Pertinent Negatives: No Symptoms of GERD, No Major Cardiovascular Symptoms or Complaints and No History of CVA/TIA Cardiac & Pulmonary Exam Cardiac Exam: Normal S1/S2 Heart Sounds Pulmonary Exam: Clear Bilateral Breath Sounds Implantable Cardiac Device Does patient have a Pacemaker or an ICD?: No Airway Exam Known Difficult Airway: No Mallampati Class: 3 Mouth Opening: Normal (> 3cm) Thyromental Distance: Greater than 3 cm Neck Range of Motion: Full ROM Neck Circumference: Normal Teeth Condition: Normal Dentition and Loose or Chipped (#44 chipped) Tooth Numberin 1. chipped ASA Classification ASA Score: ASA 2 Emergency Case?: No NPO Status NPO Status: NPO Clears >2 hours, Solids >8 hours Anesthesia Plan Resuscitation Status: Full Code Anesthesia Technique: Spinal Anesthesia Airway Planned: Natural Airway Pain Management: Surgeon and patient request nerve block Monitors Used: Standard Monitors
[2024-02-05] MEDS: Lactated Ringers 500 ML 30 ML IV (06:53)
[2024-02-05] MEDS: Gabapentin 300 MG CAP PO (06:59)
[2024-02-05] MEDS: Celecoxib 200 MG CAP 400 MG PO (06:59)
[2024-02-05] MEDS: Acetaminophen 500 MG TAB 1000 MG PO (06:59)
--- NOTE | 2024-02-05 07:13 | W.PM.DSUDISC ---
Date of service: 02/05/24 Time of Service: 07:16 Discharge Plan Disposition Patient Disposition: Home Condition: Good Discharge Details Reason For Visit: Left knee DJD Attending Provider: Sandoval Rose Primary Care Provider: Shwetha Jarrell Home Meds and New Rx's Prescriptions: New celecoxib [Celebrex] 200 mg capsule 200 mg PO BID PRNQty: 60 0RF Rx Instructions: Take one tablet twice daily for pain and inflammation aspirin 81 mg tablet,delayed release (DR/EC) 81 mg PO BID 30 Days Qty: 60 0RF acetaminophen 500 mg tablet 1,000 mg PO Q8H PRN Qty: 90 0RF Rx Instructions: Take two tablets up to every 8 hours as needed for pain dexamethasone 4 mg tablet 4 mg PO DAILY Qty: 2 0RF Rx Instructions: Take one tablet once daily for two days docusate sodium [Colace] 100 mg capsule 100 mg PO BID Qty: 30 0RF gabapentin 300 mg capsule 300 mg PO QHS Qty: 14 0RF Rx Instructions: Take one tablet at bedtime oxycodone 5 mg tablet 5 mg PO Q4H PRNQty: 18 0RF Rx Instructions: Take one tablet up to every 4 hours as needed for severe postoperative pain Continued sucralfate 1 gram tablet 1 g PO BID PRN Rx Instructions: Recommend slurry (tab + water) diclofenac sodium [Voltaren] 1 % gel 2 g topical BID PRN Rx Instructions: Knees lisinopril 5 mg tablet 5 mg PO DAILY Qty: 90 3RF Rx Instructions: Continue with 1/day omeprazole magnesium [Prilosec OTC] 20 mg tablet,delayed release (DR/EC) 20 mg PO QDAY Rx Instructions: BRAND NAME ONLY fluticasone propionate [Allergy Relief (fluticasone)] 50 mcg/actuation spray,suspension 2 spray intranasal DAILY Rx Instructions: administer into each nostril Discontinued acetaminophen [Tylenol 8 Hour] 650 mg tablet extended release 650 mg PO Q8H PRN ibuprofen [Motrin IB] 200 mg capsule 400 mg PO HS PRN Discharge Instructions Additional Instructions: Total Knee Discharge Instructions Activity: The most important activity is to walk and to work on gentle motion (both flexion and extension). You should try to take short walks a few times a day. It is important that when resting you work on keeping the knee straight. Avoid putting a pillow behind the knee as this will encourage flexion. Work on range of motion exercises as provided by Physical Therapy. - Start outpatient physical therapy within 2 weeks. - You should wear the JAMES hose on both legs for 2 weeks. You may remove these at night. You may also use any compression sock in place of the JAMES hose. - Utilize [employer] to review exercises, see videos on exercises and obtain basic information pertaining to your surgery and your recovery. Dressing: Remove the Keagan wrap by 2 days after your surgery and put on the JAMES stocking given to you from the hospital. Keep the surgical dressing (underneath the KEAGAN wrap) in place for at least one week. After the first week it may be removed and replaced with light gauze and tape or nothing. The wound and dressing may get wet after 3 days but avoid soaking the dressing or otherwise it will need to be changed. Many people prefer covering the dressing with cling wrap (saran wrap) to minimize it from getting soaked. If it gets wet, just pat dry. If it starts to peel off then it will need to be changed. Medications: - You should take Tylenol and anti-inflammatory Celebrex as your primary pain control medications. If the Celebrex is too expensive or not covered, please call the office for another alternative (Advil/Ibuprofen or Naproxen/Aleve) - You have been prescribed a stronger pain medication Oxycodone for breakthrough pain, take as needed as prescribed. - You take a stomach acid reduction agent, Omeprazole, at baseline - continue with this medication to help reduce stomach acid and reflux. - You have been prescribed Gabapentin to take at night for restlessness and nerve pain. - You will be taking Aspirin 81mg twice a day for DVT prevention unless instructed otherwise. - You have also been prescribed Decadron to take to control post-operative nausea and pain. You will start this tomorrow. - If you have constipation you should take Colace (which has been prescribed) or Miralax (which is available [id number]). It takes most people 3-4 days to have a bowel movement. Follow-up: 2 weeks If you have any acute concerns or questions, please do not hesitate to contact the office at [phone]. You may contact Dr. Rose with any questions after hours through the hospital at [phone] or on his cell phone at [phone]. Equipment/Supplies: Walker Activity:: Elevate Remove Dressings/Wound Care:: Do Not Remove Shower/Bathe:: Cover Diet:: As Tolerated Discharge Orders Discharge Orders: Discharge Order (Routine); Ordered 02/05/24 Ordered By: Sarah Ignacio
--- NOTE | 2024-02-05 07:20 | HPE_ITS ---
Assessment and Plan Assessment and plan (1) Left knee DJD: Status: Acute Assessment and plan: Ron is a 68-year-old male who has ongoing pain about both knees, worse on the left side. He has been diagnosed with significant arthritis about the left kn ee. He is ready to undergo a left knee replacement as he has exhausted other nonoperative options. However, he is always consistent with anxiety about various medical diagnoses. Once again I was very honest with Ron that there is nothing malignant about these lesions in his spine as proven by the biopsy. There is no indication they will turn into anything malignant. He has daily pain about his left knee and the focus today is on treating his left knee. Once again I reviewed knee replacement with him. I reviewed the necessary time for rehabilitation following the procedure. Furthermore, I went over in detail the possible complications of knee replacement. These include but are not limited to bleeding, infection, pain, stiffness, weakness, damage to nerves, damage to vessels, damage to muscle and tendon, fracture, leg length inequality, wound healing complications, instability, component loosening, and blood clot. Questions were answered. I again expressed that this is a surgery to improve functional quality of life. After a review of the presented information and risks, Ron desired to proceed. History of Present Illness History of Present Illness Chief Complaint: Left Knee Pain Narrative: Ron is a 68-year-old male who I have known previously for his left knee. He has known left knee arthritis. He has failed other nonoperative options and is contemplated left knee replaced or quite some time. 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 These have been biopsied which only showed sclerotic bone. There was no significant pathology about these lesions. He continues to be limited by left knee pain although does have anxiety about these lesions. Review of Systems All systems reviewed & are unremarkable except as noted in HPI and below PFSH All Active Problems History of total left knee replacement (Acute 02/05/24) Hypertrophy of bone, left tibia (Acute) Microscopic hematuria (Acute) Left knee DJD (Acute) Bone lesion (Acute) PET (DDx mets?) Flank pain (Acute) left side Abnormal positron emission tomography (PET) scan (Acute ~2024) ETD (eustachian tube dysfunction) (Acute) Cough (Acute) Pulmonary nodule (Acute) Lesion of vertebra (Acute) Loss of height (Acute) ~2 since 2019 Malabsorption (Acute) At risk for osteoporosis (Acute) Bronchitis (Acute) Cough/Bronchitis-like symptoms x 2 weeks (URI started TGiving) Pulmonary infiltrate in left lung on CXR (Acute) Degenerative arthritis of knee, bilateral (Acute) DEPO MEDROL 01/05/23 Strain of flexor muscle of right hip (Acute) Vitamin D deficiency (Acute) 07/17/22 sleep Iron deficiency (Acute) 07/17/22 Sleep Fatigue (Acute) 07/17/22 Sleep Periodic limb movement disorder (Acute) 07/17/22 Sleep Obstructive sleep apnea of adult (Acute) 07/17/22 Sleep Mild obstructive sleep apnea (Acute) Long-term current use of proton pump inhibitor therapy (Acute) Gastric polyps (Acute) Laryngopharyngeal reflux (Acute) Hx of edema (Chronic) No recent issues; HOLD furosemide Family history of CHF (congestive heart failure) (Acute) Vocal cord granuloma (Acute) Benign polyp of duodenum (Acute) Possibly 2' PPI ... trial wean, summer/fall 2020 Phlegm in throat (Acute) SVT (supraventricular tachycardia) (Chronic) per heart monitor, 09/2020.. corresponds w/ pt-recorded events. 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 Zio patch ordered, 11/12/19 & Cardio consult ON HOLD 2' COVID.[ ] Chronic rhinitis (Chronic 11/06/19) ENT Dr. Garza Seborrheic keratoses (Acute) 09/23/19-Dr. Moreno Epidermal cyst (Acute) 09/23/19- Dr. Moreno Knee effusion, right (Acute) Neck pain on left side (Chronic) Tightness, some relief s/p PT, but short-lived Sleeps with 2 pillows 2' GERD: trial wedge under mattress and 1 firm illow. Trial Ibu 600 (Hx 400mg). Swelling of knee joint, right (Acute) Edema (Acute) Trochanteric bursitis, right hip (Acute) Injected: 03/17/2019 Varicose veins of bilateral lower extremities with other complications (Acute) R>>L, some tenderness. Recommend eval by Dr. Hartman. Chronic pharyngitis (Acute) Globus sensation (Acute) Status post hernia repair (Chronic) RT Status post total hip replacement, right (Chronic 09/02/18) Dr. Dove BMI 33.0-33.9,adult (Chronic) Xerophthalmia (Chronic) Xerostomia (Chronic) Hoarseness or changing voice (Chronic 11/06/13) Vocal cord granuloma, removed 2008, 2009 Esophageal reflux (Chronic 11/06/13) Carpal tunnel syndrome (Chronic 01/11/11) Medical History DVT (deep venous thrombosis) (~1996) left legdvtx3 with coumadin use till 2010.[facility] [place] no hereditary predilection despite strong maternal side occurrence Pneumonia Phlegm in throat Non-restorative sleep Contact granuloma of larynx [facility] [place] excision x2, thought gerd related followed by ent,swallowing difficuty endoscopy rec to check for barretts Surgical History History of hip replacement (R) 2019 H/O endoscopy 06/23/20 [facility] Dr. Hartman H/O colonoscopy 06/23/20 [facility] [address]. Hartman History of tonsillectomy History of hernia repair (~02/2018) adi Family History Mother Alzheimer disease Father Heart attack 2 Stents Heart disease Pulmonary fibrosis Maternal Grandfather Stroke Maternal Grandmother CHF (congestive heart failure) Brother Diabetes Type 2 Other DVT (deep venous thrombosis) Social History Smoking/Tobacco Use Status: Never Smoking risk assessment performed?: Yes Alcohol Intake: current Alcohol Intake frequency: a few times a month Alcohol type: wine Drug use: Never Substance use type: does not use Adopted: No Caregiver/Support person: No Foster care: No Household members: none Housing: house Number of Children: 0 number of grandchildren: 0 Communication Needs: Corrective Lenses Education Level: college Details: Bachelor's Do you need help understanding health information?: Never current occupation: Retired Banker Pets and animals: Yes Pets and animals: cat(s) Sexually active: No Do you think of yourself as: straight/heterosexual Current gender identity: male What is your relationship status?: never How often do you talk on the phone with friends or family?: twice per week How often do you get together with friends or relatives?: once per week Do you belong to any clubs or organized social groups?: no Panel score (0-1 are the most socially isolated patients): 1 What type of physical activity do you participate in: walking and other Details: snow shoeing Duration: 15-30 minutes/day Frequency: 3-4 times per week Sylvia/Latter Day: Rastafarian Special sylvia needs: No Seatbelt use: always Helmet use: No Drive 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 Working smoke detector in home: Yes Fire extinguisher in home: Yes Carbon monox detector in home: Yes Do you feel safe at home: Yes Do you feel safe in your relationship?: Yes Victim of physical abuse: No Victim of emotional abuse: No Victim of sexual abuse: No Meds Allergies and Home Medications Allergies Allergy/AdvReac Type Severity Reaction Status Date / Time amoxicillin Allergy rash, h/a, Verified 02/05/24 06:13 vomitting doxycycline Allergy rash, h/a, Verified 02/05/24 06:13 vomitting Home Medications ?Medication ?Instructions ?Recorded ?Confirmed ?Type sucralfate 1 gram tablet 1 g PO BID PRN 04/19/21 02/05/24 History diclofenac sodium 1 % topical gel 2 g topical BID PRN 03/02/23 02/05/24 History (Voltaren) fluticasone propionate 50 2 spray intranasal DAILY 03/12/23 02/05/24 History mcg/actuation nasal spray,suspension (Allergy Relief (fluticasone)) lisinopril 5 mg tablet 5 mg PO DAILY #90 tabs 09/30/23 02/05/24 Rx omeprazole magnesium 20 mg 20 mg PO QDAY 12/12/23 02/05/24 History tablet,delayed release (Prilosec OTC) acetaminophen 500 mg tablet 1,000 mg (2 x 500 mg) PO Q8H PRN 02/05/24 Rx pain #90 tabs aspirin 81 mg tablet,delayed 81 mg PO BID 30 days #60 tabs 02/05/24 Rx release celecoxib 200 mg capsule (Celebrex) 200 mg PO BID PRN #60 caps 02/05/24 Rx dexamethasone 4 mg tablet 4 mg PO DAILY #2 tabs 02/05/24 Rx docusate sodium 100 mg capsule 100 mg PO BID #30 caps 02/05/24 Rx (Colace) gabapentin 300 mg capsule 300 mg PO QHS #14 caps 02/05/24 Rx oxycodone 5 mg tablet 5 mg PO Q4H PRN #18 tabs 02/05/24 Rx Exam Const General: cooperative, healthy appearing, comfortable and no acute distress Resp Auscultation: clear to auscultation bilaterally Cardio Rate: regular rate Rhythm: regular rhythm Results Last Vital Signs Temp 36.7 C 02/05/24 07:13 Pulse 93 H 02/05/24 07:13 Resp 28 H 02/05/24 07:13 BP 152/92 H 02/05/24 07:13 Pulse Ox 96 02/05/24 07:13
[2024-02-05] MEDS: ceFAZolin 2 GM/50 ML BAG IVPB (07:47)
[2024-02-05] MEDS: TRANEXAMIC ACID/SOD. CHL. 1,000 MG/100 ML BAG 600 MG IVPB (07:53)
--- NOTE | 2024-02-05 08:12 | W.ANESNERVE ---
Nerve Block Single Injection Procedure Date and Time Date Performed: 02/05/24 Procedure Start: 07:18 Location Where Procedure Performed Procedure Location: Day Surgery Unit Reason Performed: Postoperative Analgesia Requesting Provider: Sandoval Rose Timeout Performed Timeout Performed: Yes Monitoring Used ECG, Blood Pressure and SpO2 Sterility Sterility: Hand Hygiene, Surgical Cap, Surgical Mask, Sterile Gloves and Chlorhexidine Sedation Given During Procedure Sedation Given (Indicate Dose Given): No Sedation given Patient Mental Status Patient Mental Status: Awake Nerve Block 1st Nerve Block: Laterality: Left Block Type: Adductor Canal Ultrasound Image Saved?: Yes Needle / Catheter Used: 100mm SonoPlex II Local Anesthetic Bolus (Indicate Dose Given): Lidocaine used for local infiltration of skin, Injected in 3-5ml increments after negative blood aspiration and Bupivacaine 0.25% Dose:: 10 mL, 25 mg Additives (Indicate Dose Given): None Ultrasound: Sterile probe cover and gel used Nerve Stimulator: Supplement to Ultrasound use and No twitch or parasthesia noted < 0.5 mA Paresthesia: None Procedure Tolerated: No Complications and Patient tolerated well Procedure Outcome: Successful Performed By: Harpreet Ochoa Supervised By: Ron Caban
--- NOTE | 2024-02-05 09:05 | W.PM.OP ---
Date of service: 02/05/24 Time of Service: 07:40 Operative Note Operative Note DATE OF PROCEDURE: 02/05/24 PRE-OP DIAGNOSIS: Left Knee Osteoarthritis POST-OP DIAGNOSIS: same PROCEDURE: Left Total Knee Replacement SURGEON: Sandoval Rose EDGE DYER: Sarah Ignacio ANESTHESIA TYPE: Spinal Refer to Anesthesia Record ESTIMATED BLOOD LOSS: 150 PATHOLOGY: none sent TOURNIQUET TIME: 0 COMPLICATIONS: None Patient was transported to: PACU Patient's condition: stable Implants: 1. Depuy Attune Cementless Cruciate Retaining Femoral Component, Size 6 2. Depuy Attune Cementless Fixed Bearing Tibial Component, Size 6 3. Depuy Attune 6x6mm CR/FB Poly 4. Depuy Attune Patellar Component, Size 35 Indications: I have seen Ron in clinic for symptoms of knee arthritis, confirmed with radiographic findings. He has exhausted nonoperative methods and was having significant limitations in daily function and desired better function and less pain. I discussed the technical details of a knee replacement. I explained the risks of the procedure to include, but not limited to, bleeding, infection, pain, stiffness, fracture, damage to nerves and vessels, damage to muscles and tendons, loosening, need for repeat procedure, blood clot and cardiopulmonary demise. Despite these risks, oRn elected to proceed. Findings: There was significant signs of arthritis primarily within the medial femur and tibia. Procedure Description: Ron was greeted in the preoperative holding area where the correct side was identified and marked. The consent was reviewed with the patient and signed. The history and physical was updated. All questions were answered. Preoperative medications were administered: Acetaminophen 1000mg, Celebrex 400mg, and Gabapentin 300mg. An adductor canal block was then administered by the anesthesia team in the DSU. He was taken back to the operating room. A spinal anesthestic was then administered. The patient was placed into the supine position on the operating room table. Posts were placed for positioning during the procedure. All bony prominences were well padded. Prophylactic antibiotics in the form of Cefazolin were administered. 1g of Tranxemic Acid was given intravenously within 30 minutes of incision. The left leg was then prepped with Chloraprep and draped in a standard fashion with impervious stockinette. A second prep with Chloraprep was performed prior to application of Iodine impregnated skin protection. A timeout to confirm correct identity, side and site, procedure, allergies, anesthesia, and medical concerns was performed. With the knee in some flexion, a midline incision was made overlying the knee. Full thickness skin flaps were raised once the extensor mechanism was encountered. These were raised medially and laterally. Any bleeding was controlled with electrocautery. Once the extensor mechanism was fully exposed, a medial parapatellar arthrotomy was performed in a flexed position. All bleeding from the arthrotomy and the geniculate arteries was coagulated. A medial subperiosteal peel was performed with electrocautery to the midcoronal plane. The fat pad was removed while keeping the patellar tendon protected. The anterior distal femur synovium was removed for later visualization. The ACL and PCL were resected and the anterior horn of the lateral meniscus was transected. The knee was then flexed with the patella everted. Large osteophytes from the tibia were removed. Large osteophytes from the femur were removed. Using a step drill, and based on preoperative templating, the femoral canal was entered. This was done with a step drill without any difficulty. The intramedullary distal femoral cut guide was inserted, set to a 4 degree valgus cut and 9mm cut thickness. The distal femoral cut guide was then held in position and pinned. With the soft tissues protected, the distal cut was performed. This was passed over a few times to ensure a planar cut. I then turned attention to the tibia. The extramedullary guide was placed onto the leg. The distal aspect was slid medial to adjust for position of center of ankle and stay in line with shaft of the tibia. Approximately 3-5 degrees of posterior slope was kept in the proximal cutting guide. The center of the guide was aligned with the PCL. The stylus was used to assess cut thickness. The medial side, most involved side, was set for a 7mm cut which corresponded to 9mm laterally. This was then held in position and pinned into place with 2 additional pins and a cross pin for stability. The medial and lateral collateral ligaments were protected and the cut was performed. With this completed, it was assessed and noted to be of appropriate dimensions. The guide was removed. A spacer block was inserted and the knee was brought into extension. The 6mm spacer block provided full extension, without hyperextension and with stability of both the medial and lateral collateral ligaments was assessed. The pins from the femur and the tibia were then removed. The distal femur was then sized. The anterior stylus was placed onto the lateral ridge of the anterior femur. This indicated a size 6 femur. The external rotation of the guide was adjusted to 0 degrees to match the epicondylar axis, perpendicular to [place]?s line. The 4-in-1 cutting guide was the placed. The posterior medial femur cut was evaluated and appeared of good thickness. The spacer block was inserted underneath the cutting guide and stability was confirmed in 90 degrees of flexion. An cherri wing was used to confirm appropriate position of the anterior cut to avoid notching. This cutting guide was ensured to be flush on the cut surface and then pinned into place with headed pins. While protecting the soft tissues, quad tendon, and collateral ligaments, the anterior and posterior cuts were performed with a saw. The central two pins were removed and the posterior and anterior chamfers were cut next. The notch-cutting guide was placed. This was pinned to lateralize the femoral component as much as possible while keeping it flush on the cut surface. This was then pinned into position. A reciprocating saw was used to make the notch cut. A rasp smoothed the cut surfaces. The medial and lateral menisci were removed. A trial femoral component was then inserted, impacted down to the cut surfaces, and the lug holes were drilled. A provisional trial tibial component was placed and the knee was brought through range of motion. There was noted to be excellent extension and flexion. There was no significant instability. The patella was tracking without thumbs. A size 6mm polyethylene component provided the best range of motion and stability with less than 2mm gapping with medial and lateral stress and full extension without significant hyperextension. The tibial cut surface was fully exposed. The tibia was then sized as a 6. The tibia had been previously marked during trialing to correspond to the center of the tibial component to help with rotation. The trial was aligned to this keila, approximately rotated to the medial 1/3rd of the tibial tubercle. The trial was pinned into place. The tibia was prepared with a reamer and a keel punch and lug holes. The knee was then brought into extension and the patella was measured as 24mm. Using the patellar clamp and cut guide, this was resected to a flat surface with at least 13mm of thickness remaining. The size 35 patella fit the best. This was oriented and then clamped into position. The lugs were drilled. The trial components were removed. The final components were opened on the back table. The periosteal and capsular tissues, especially posteriorly, around the knee were then systematically injected with a periarticular cocktail consisting of 246mg of Ropivacaine, 0.5mg of Epinephrine, 0.08mg of Clonidine, and 30mg of Ketorolac, diluted to 100cc. On the back table, with the implants opened, the cement was mixed. One batch of high viscosity cement was prepared with vacuum assistance. After the cement was ready a small amount was placed on the cut surface of the patella and the patellar button was clamped into position and held. While the cement was hardening, the cementless knee components were placed. Starting with the tibial component, the tibia was subluxed anteriorly and the lug holes of the component were lined up. The tibia was then impacted with an impactor and mallet until the tibial component was in contact with the tibia. The final polyethylene component was inserted. Then, the femoral component was inserted. The lug holes were aligned and the component was impacted into position. The knee was irrigated with Surgiphor Betadine solution. This was allowed to sit in the knee for 3 minutes and then it was irrigated out with saline. After the cement had finally cured, approximately 15min, the clamp was removed from the patella and the knee was taken through range of motion. The patella was tracking with a no-thumbs technique. The capsule was then reapproximated with a No. 1 Vicryl at multiple locations. The capsule was finally closed with a No. 2 Stratafix, barbed suture. The second dosing of 1g TXA was started. Deep tissues were then reapproximated with 0 Vicryl and 2-0 Vicryl. The skin was closed with a running 3-0 Monocryl in a subcuticular fashion. This was reinforced with skin glue. A Mepilex silver dressing was applied along with a [id number] GLORIA wrap. A CryoCuff was applied. Ron was transferred to the hospital bed without difficulty an suffering no apparent complication. Ron has a good prognosis. Physical therapy will start today and without restrictions, weight-bearing as tolerated. Aspirin 81mg BID will be used for DVT prophylaxis.
[2024-02-05] MEDS: oxyCODONE 5 MG TAB PO (10:27)
--- NOTE | 2024-02-05 11:08 | W.ANESPOSTOP ---
Postoperative Evaluation Date, Time and Location Date Performed: 02/05/24 Time Performed: 10:01 Patient Location: Day Surgery Unit Vital Signs Most Recent Imported Vital Signs: Most Recent Vital Signs Temp Pulse Resp BP Pulse Ox 36.3 C L 77 19 139/86 96 02/05/24 10:32 02/05/24 10:32 02/05/24 10:32 02/05/24 10:32 02/05/24 10:32 Pain Score Most Recent Pain Score: Most Recent Pain Score Pain Level 5 02/05/24 10:32 Assessment Mental Status: Awake (Alert & Oriented to Patient Baseline) Airway and Respiratory Function: Patent airway with normal (patient baseline) respiratory exam Cardiovascular Function: Hemodynamically Stable Hydration Status: Adequately Hydrated Nausea & Vomiting: No Nausea or Vomiting Pain: Pt. Denies Any Pain Peripheral Nerve Block: Regional nerve block not resolved at time of post operative discharge
--- NOTE | 2024-02-05 11:53 | IN_ITS ---
PT Notes Visit Reasons: Left knee DJD Physical Therapy Day Surgery Initial Evaluation Date: 02/05/2024 Referring Doctor: Dr Rose PT Orders: PT CONSULT: s/p Ortho surgery Precautions: WBAT LLE TEDs x 2 weeks Patient Profile/Admitting Diagnosis: Pt is 68 yo male presenting s/p elective Left TKA d/t DJD by Dr Rose on 02/05/2024 pot op uncomplicated PMHX: Hypertrophy of bone, left tibia (Acute) Microscopic hematuria (Acute) Left knee DJD (Acute) Bone lesion (Acute) PET (DDx mets?)Flank pain (Acute) left sideAbnormal positron emission tomography (PET) scan (Acute ~2023) ETD (eustachian tube dysfunction) (Acute) Cough (Acute) Pulmonary nodule (Acute) Lesion of vertebra (Acute) Loss of height (Acute) ~2 since 2018Malabsorption (Acute) At risk for osteoporosis (Acute) Bronchitis (Acute) Cough/Bronchitis-like symptoms x 2 weeks (URI started TGiving)Pulmonary infiltrate in left lung on CXR (Acute) Degenerative arthritis of knee, bilateral (Acute) DEPO MEDROL 01/05/23Strain of flexor muscle of right hip (Acute) Vitamin D deficiency (Acute) 07/17/22 sleepIron deficiency (Acute) 07/17/22 SleepFatigue (Acute) 07/17/22 SleepPeriodic limb movement disorder (Acute) 07/17/22 SleepObstructive sleep apnea of adult (Acute) 07/17/22 SleepMild obstructive sleep apnea (Acute) Long-term current use of proton pump inhibitor therapy (Acute) Gastric polyps (Acute) Laryngopharyngeal reflux (Acute) Hx of edema (Chronic) No recent issues; HOLD furosemideFamily history of CHF (congestive heart failure) (Acute) Vocal cord granuloma (Acute) Benign polyp of duodenum (Acute) Possibly 2' PPI ... trial wean, summer/fall 1Phlegm in throat (Acute) SVT (supraventricular tachycardia) (Chronic) per heart monitor, 09/2020.. corresponds w/ pt-recorded events. [ ] cardio eval/discussionHeart palpitations (Acute) History of esophagogastroduodenoscopy (EGD) (Chronic) 06/23/2020 DanielsonDeviated nasal septum (Acute) Abdominal pain (Acute) Dysphagia, pharyngoesophageal (Acute) 12/25/19 GI LRHGastroesophageal reflux disease (Chronic) Post-nasal drip (Acute) Fluttering sensation of heart (Acute) Re-referring to Cardio and ordered RD MECHANICAL ENGINEER. Zio patch ordered, 11/12/19 & Cardio consult ON HOLD 2' COVID.[ ]Chronic rhinitis (Chronic 11/06/19) ENT RankinSeborrheic keratoses (Acute) 09/23/19-Dr. MelendezerEpidermal cyst (Acute) 09/23/19- Dr. Macario effusion, right (Acute) Neck pain on left side (Chronic) Tightness, some relief s/p PT, but short-lived Sleeps with 2 pillows 2' GERD: trial wedge under mattress and 1 firm illow. Trial Ibu 600 (Hx 400mg).Swelling of knee joint, right (Acute) Edema (Acute) Trochanteric bursitis, right hip (Acute) Injected: 03/17/2019Varicose veins of bilateral lower extremities with other complications (Acute) R>>L, some tenderness. Recommend eval by Dr. Hartman.Chronic pharyngitis (Acute) Globus sensation (Acute) Status post hernia repair (Chronic) RTStatus post total hip replacement, right (Chronic 09/02/18) Dr. Rader 33.0-33.9,adult (Chronic) Xerophthalmia (Chronic) Xerostomia (Chronic) Hoarseness or changing voice (Chronic 11/06/13) Vocal cord granuloma, removed 2008, 2009Esophageal reflux (Chronic 11/06/13) Carpal tunnel syndrome (Chronic 01/11/11) Medical History (Updated 02/05/24 @ 07:59 by Rachid Choi RN) DVT (deep venous thrombosis) (~1996) left legdvtx3 with coumadin use till 2010.[facility] hematology evaluation no hereditary predilection despite strong maternal side occurrencePneumonia Phlegm in throat Non-restorative sleep Contact granuloma of larynx [facility] excision x2, thought gerd related followed by ent,swallowing difficuty endoscopy rec to check for barretts Surgical History (Updated 02/05/24 @ 07:59 by Rachid Choi RN) History of hip replacement (R) 2019H/O endoscopy 06/23/[address] [facility] Dr. HartmanH/O colonoscopy 06/23/20 [facility] [address]. HartmanHistory of tonsillectomy History of hernia repair (~02/2018) adi Social History/Home Situation: Lives alone single-family home with 4 steps to enter with left railing. Patient has a cat he reports litter boxes and basement he does have a flight of stairs with left railing only down to basement. He is independent with ambulation without device, ADLs, IADLs, meal prep, house chores, shopping, med management, yard work. Patient is retired banker. Patient drives Equipment Owned/DME: FWW, comfort height toilet, built-in seat and shower, long hallway with full railing Subjective: Patient reports he feels better than he thought he would. Patient reports his parents lived with him and he has wheelchair accessible bathroom Objective: [] General Observation: Awake semireclined on stretcher Cryo/Cuff to left knee Mental Status: Alert and oriented x 4 motivated cooperative agreeable to participate in evaluation Pain: Left knee 3/10 ROM: [] Right Upper Extremity: WNL Left Upper Extremity: WNL Right Lower Extremity: WNL Left Lower Extremity: Hip and ankle within normal limits; knee 0 to 97 degrees Strength: [] Right Upper Extremity: 5/5 Left Upper Extremity: 5/5 Right Lower Extremity: 5/5 Left Lower Extremity: Hip flexion>3/5, abduction>3/5, knee flexion 2+/5 extension 3/5, ankle 3/5; Pt demonstrates SLR within shortened ROM without quad lag, strong quad set. Sensation: Intact Bed Mobility/Transfers: Supine to sit independent Sit to stand independent Stand to sit independent Bed to chair independent with FWW Gait: Ambulate with FWW step to pattern initially leading with left lower extremity on 150 feet level surfaces including turns supervision progress to reciprocal pattern Stairs: 2 steps x 2 with left rail only supervision step to pattern Balance: [] Static Sitting: Normal Dynamic Sitting: Good+ Static Standing: Good + Dynamic Standing: Good Special Tests: Mobility Limitations Standardized Measure [facility] AM-PAC 6 clicks Basic Mobility Inpatient Short Form: Raw Score: 0 0% CMS Score: 0% Informed Consent/Education: Patient instructed in purpose of PT consult. Packet containing TKA exercise protocol has been given to patient. Education and training on initial set of exercises that can be done at home have been completed with patient. Assessment: Patient presents with clinical signs and symptoms consistent with curre nt/admitting diagnoses that have resulted to mobility limitations, gait instability, generalized weakness, and impairment of motor control as demonstrated by the following impairment level findings: 1. Decreased strength to left knee major muscle groups 2. Impaired standing balance 3. Limitation of joint range of motion in left knee Impairments are contributing to the following functional limitations: 1. Inability to safely ambulate without assistive device 2. Increase completion time for mobility ADL performance 3. Increased fall risk 4. Difficulty performing stairs without supervision. Patient is assessed as a moderate complexity based on the following: History: 68-year-old male with impairment level findings, functional limitations, and past medical history as indicated above Examination: Demonstrable impairment in strength, balance, and mobility level with underlying impairments and functional limitations as documented above Presentation: stable Decision Making: moderate Goals: N/A. Plan of Care/Treatment Plan: N/A. DISCHARGE RECOMMENDATIONS:Home with HEP and Outpatient PT as scheduled TREATMENT CODE/TIME: 83285 x 20 mins for 1 unit , 48199 x 25 mins for 2 units/ [id number] Thank you for the opportunity to participate in the care of this patient. Agustina Morales PT Please sign an return this page within 30 days if you agree with the above POC. Thank you! Physician Signature Date [facility]
== END 2024-02-05 12:29 | disposition home or self-care (01) ==
PROVIDERS: PCP Student in an Organized Health Care Education/Training Program; Visit Provider Student in an Organized Health Care Education/Training Program
PROC: (CPT 27447; principal; 2024-02-05 07:30)
DX: M17.12 Unilateral primary osteoarthritis, left knee (principal); I47.10 Supraventricular tachycardia, unspecified; G47.33 Obstructive sleep apnea (adult) (pediatric); K21.9 Gastro-esophageal reflux disease without esophagitis; G89.18 Other acute postprocedural pain
CPT/HCPCS: 27447; 64447; 97162; 97530; C1776; J0665; J0690; J1100; J2401; J2405; J2704

== ENCOUNTER 2024-02-18 14:30 | Outpatient (CLI) | payer MEDICARE, BC, SELFPAY ==
--- NOTE | 2024-02-18 11:15 | DI.RAD_ITS ---
Exam(s) XR KNEE LT 1V XR STANDING ALIGNMENT EXAM: XR STANDING ALIGNMENT and XR knee LT 1 V CLINICAL HISTORY: 1ST POST OP S/P L TKA. TECHNIQUE: 2D digital imaging was performed. Five images were obtained. COMPARISON: CR XR STANDING ALIGNMENT from 07/09/2023 FINDINGS: BONES: The patient has a right total hip arthroplasty. Since the prior examination the patient has u ndergone a left total knee arthroplasty. The orthopedic hardware appears in good position. There ar e no lucency seen in or around the orthopedic hardware. There are mild degenerative changes seen in the medial right femoral tibial joint. Stable thickening of the cortex of the proximal tibial diaphy sis. The ankles are well maintained.There is no significant leg length discrepancy. SOFT TISSUE: Normal. IMPRESSION: Interval placement of a left total knee arthroplasty. DATA REPOSITORY: RADIATION DOSE DELIVERED:
== END 2024-02-18 14:31 | disposition home or self-care (01) ==
LOC: DIORS 15:49
PROVIDERS: PCP Student in an Organized Health Care Education/Training Program; Referring Provider Student in an Organized Health Care Education/Training Program; Visit Provider Student in an Organized Health Care Education/Training Program
DX: Z96.652 Presence of left artificial knee joint (principal); Z47.1 Aftercare following joint replacement surgery
CPT/HCPCS: 99024; 73560; 77073

== ENCOUNTER → 2024-03-18 10:30 | Outpatient (BNVA) | payer MEDICARE, BC, SELFPAY | PROVIDERS: PCP Student in an Organized Health Care Education/Training Program; Referring Provider Student in an Organized Health Care Education/Training Program; Visit Provider Physician Assistant | DX: Z47.1 Aftercare following joint replacement surgery (principal); Z96.652 Presence of left artificial knee joint | CPT/HCPCS: 99024 ==

== ENCOUNTER → 2024-04-17 14:35 | Outpatient (BNVA) | payer MEDICARE, BC, SELFPAY | PROVIDERS: PCP Student in an Organized Health Care Education/Training Program; Referring Provider Student in an Organized Health Care Education/Training Program; Visit Provider Student in an Organized Health Care Education/Training Program | DX: Z47.1 Aftercare following joint replacement surgery (principal); Z96.652 Presence of left artificial knee joint | CPT/HCPCS: 99024 ==

== ENCOUNTER → 2024-12-17 08:46 | Outpatient (BNVA) | payer MEDICARE, BC, SELFPAY | PROVIDERS: PCP Student in an Organized Health Care Education/Training Program; Referring Provider Student in an Organized Health Care Education/Training Program; Visit Provider Nurse Practitioner Gerontology | DX: R31.29 Other microscopic hematuria (principal); N40.0 Benign prostatic hyperplasia without lower urinary tract symptoms; R39.9 Unspecified symptoms and signs involving the genitourinary system | CPT/HCPCS: 99213; 81002; 51798 ==

== ENCOUNTER 2024-12-25 09:26 | Outpatient (CLI) | payer MEDICARE, BC, SELFPAY ==
--- NOTE | 2024-12-25 08:30 | DI.RAD_ITS ---
Exam(s) XR KNEE LT 2V AP,LAT EXAM: XR KNEE LT 2V AP,LAT CLINICAL HISTORY: ANNUAL F/U L TKA. TECHNIQUE: 2D digital imaging was performed. COMPARISON: CR XR KNEE LT 1V from 02/18/2024 FINDINGS: Two views There is stable position alignment the femoral and tibial components of the prosthesis. No fracture or loosening evident and no radiographic evidence of osteomyelitis. There is also been patellar resurfacing. On the lateral view there is small area of lucency in the posterior patella noted, more evident than previous. This may be significant. There does not appear to be a prominent joint effusion. IMPRESSION: Stable appearance of the femoral and tibial component of the prosthesis Area of lucency in the posterior patella possibly significant. DATA REPOSITORY: RADIATION DOSE DELIVERED:
--- NOTE | 2024-12-25 09:15 | DI.RAD_ITS ---
Exam(s) XR KNEE LT 1V EXAM: XR KNEE LT 1V CLINICAL HISTORY: eval patella in TKA. TECHNIQUE: 2D digital imaging was performed. COMPARISON: CR XR KNEE LT 1V from 02/18/2024 CR XR KNEE LT 2V AP,LAT from 12/25/2024 FINDINGS: Attapulgus/margins view of the left knee: Left knee prosthesis and there has been patellar resurfacing. No patellar displacement. There is, however, mild lucency in the posterior patella medial aspect of questionable significance IMPRESSION: As above. DATA REPOSITORY: RADIATION DOSE DELIVERED:
== END 2024-12-25 09:27 | disposition home or self-care (01) ==
LOC: DIORS 09:26
PROVIDERS: PCP Student in an Organized Health Care Education/Training Program; Referring Provider Student in an Organized Health Care Education/Training Program; Visit Provider Student in an Organized Health Care Education/Training Program
DX: Z47.1 Aftercare following joint replacement surgery (principal); Z96.652 Presence of left artificial knee joint
CPT/HCPCS: 99213; 73560